=== PATIENT | female | born 1980 | race Caucasian/White ===

== ENCOUNTER 2017-03-31 11:09 | Emergency (ER) | payer MEDICAID, OTHER ==
--- NOTE | 2017-03-31 11:32 | EDM.PDOC ---
ED HPI GENERAL MEDICAL PROBLEM - General Chief Complaint: Abdominal Pain Stated Complaint: ABDOMINAL PAIN Time Seen by Provider: 03/31/17 11:12 - History of Present Illness INITIAL COMMENTS - FREE TEXT/NARRATIVE: History of present illness: [] Patient started having severe periumbilical abdominal pain yesterday with vomiting and diarrhea. She denies any fevers or chills vaginal discharge or difficulty urinating. She has not had this pain in the past. Patient has had 2 months of feeling ill with nausea and has lost her appetite. She states she's lost 27 pounds in the past 2 months. Review of systems: As per history of present illness and below otherwise all systems reviewed and negative. Past medical history: As per history of present illness and as reviewed below otherwise noncontributory. Surgical history: As per history of present illness and as reviewed below otherwise noncontributory. Social history: No reported history of drug or alcohol abuse. Family history: As per history of present illness and as reviewed below otherwise noncontributory. Physical exam: General: Well developed, well nourished in NAD HEENT: Atraumatic, normocephalic, pupils reactive, negative for conjunctival pallor or scleral icterus, mucous membranes moist, throat clear, neck supple, nontender, trachea midline. Lungs: Clear to auscultation, breath sounds equal bilaterally, chest nontender. Heart: S1S2, regular, negative for clicks, rubs, or JVD. Abdomen: Soft, nondistended, diffuse tenderness or rebound or guarding. Negative for masses or hepatosplenomegaly. Negative for costovertebral tenderness. Pelvis: Stable nontender. Genitourinary: Deferred. Rectal: Deferred. Extremities: Atraumatic, negative for cords or calf pain. Neurovascular unremarkable. Neuro: Awake, alert, oriented. Cranial nerves II through XII unremarkable. Cerebellum unremarkable. Motor and sensory unremarkable throughout. Exam nonfocal. Diagnostics: [] CT and labs are normal Therapeutics: [] IV fluids pain meds antibiotics given with improvement Impression: [] Abdominal pain unknown etiology Plan: [] Levsin for abdominal cramping followup PMD return here if symptoms worse Definitive disposition and diagnosis as appropriate pending reevaluation and review of above. Abdominal Pain Score (Numeric/FACES): 7 - Related Data Allergies Allergy/AdvReac Type Severity Reaction Status Date / Time amoxicillin trihydrate Allergy Itching Verified 03/31/17 11:32 [From Augmentin] potassium clavulanate Allergy Itching Verified 03/31/17 11:32 [From Augmentin] Home Meds: Home Meds Hyoscyamine Sulfate [Levsin-Sl] 0.125 mg SL TID PRN #20 tab.subl 03/31/17 [Rx] Past Medical History HEENT History: Reports: Impaired Vision Cardiovascular History: Reports: None Respiratory History: Reports: None Gastrointestinal History: Reports: Cholelithiasis Genitourinary History: Reports: None 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: 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 History: Reports: None Neurological History: Reports: None Psychiatric History: Reports: Anxiety, Depression Endocrine/Metabolic History: Reports: None Hematologic History: Reports: None Immunologic History: Reports: None Oncologic (Cancer) History: Reports: None Dermatologic History: Reports: None - Infectious Disease History Infectious Disease History: Reports: Chicken Pox - Past Surgical History Female Surgical History: Reports: Tubal Ligation Social & Family History - Family History Family Medical History: Noncontributory - Tobacco Use Smoking Status *Q: Current Every Day Smoker Years of Tobacco use: 15 Packs/Tins Daily: 0.5 Used Tobacco, but Quit: No Second Hand Smoke Exposure: No - Recreational Drug Use Recreational Drug Use: No ED ROS GENERAL - Review of Systems Review Of Systems: See Below (See history of present illness) ED EXAM, GI/ABD - Physical Exam Exam: See Below (See history of present illness) Course - Vital Signs Last Recorded V/S: Last Vital Signs Temp 35.9 C 03/31/17 11:22 Pulse 68 03/31/17 11:22 Resp 19 03/31/17 11:22 BP 129/75 03/31/17 11:22 Pulse Ox 99 03/31/17 11:22 - Orders/Labs/Meds Orders: Active Orders 24 hr Category Date Time Status HYDROmorphone [Dilaudid] Med 03/31/17 11:33 Active 0.5 mg IVPUSH Q1H PRN Saline Lock Insert [OM.PC] Stat Oth 03/31/17 11:32 Ordered Medication Orders Hydromorphone HCl (Dilaudid) 0.5 mg IVPUSH Q1H PRN PRN Reason: Pain Last Admin: 03/31/17 11:56 Dose: 0.5 mg Labs: Laboratory Tests 03/31/17 03/31/17 03/31/17 Range/Units 11:32 11:32 11:46 WBC 9.28 (4.0-11.0) K/uL RBC 4.63 (4.30-5.90) M/uL Hgb 14.6 (12.0-16.0) g/dL Hct 42.9 (36.0-46.0) % MCV 92.7 (80.0-98.0) fL MCH 31.5 (27.0-32.0) pg MCHC 34.0 (31.0-37.0) g/dL RDW Std Deviation 45.5 (28.0-62.0) fl RDW Coeff of Jocelyn 13 (11.0-15.0) % Plt Count 175 (150-400) K/uL MPV 12.70 H (7.40-12.00) fL Neut % (Auto) 69.2 (48.0-80.0) % Lymph % (Auto) 25.4 (16.0-40.0) % [place] % (Auto) 4.3 (0.0-15.0) % Eos % (Auto) 0.8 (0.0-7.0) % Baso % (Auto) 0.3 (0.0-1.5) % Neut # (Auto) 6.4 H (1.4-5.7) K/uL Lymph # (Auto) 2.4 (0.6-2.4) K/uL [place] # (Auto) 0.4 (0.0-0.8) K/uL Eos # (Auto) 0.1 (0.0-0.7) K/uL Baso # (Auto) 0.0 (0.0-0.1) K/uL Nucleated RBC % 0.0 /100WBC Nucleated RBCs # 0 K/uL Lactate (0.20-2.00) mmol/L Sodium (136-146) mmol/L Potassium (3.5-5.1) mmol/L Chloride (98-110) mmol/L Carbon Dioxide (21-31) mmol/L BUN (6.0-23.0) mg/dL Creatinine (0.6-1.5) mg/dL Est Cr Clr Drug Dosing mL/min Estimated GFR (MDRD) ml/min Glucose (60-110) mg/dL Calcium (8.8-10.8) mg/dL Total Bilirubin (0.1-1.5) mg/dL AST (5-40) IU/L ALT (8-54) IU/L Alkaline Phosphatase (40-150) Total Protein (6.0-8.0) g/dL Albumin (3.5-5.0) g/dL Globulin (2.0-3.5) g/dL Albumin/Globulin Ratio (1.3-2.8) Lipase (7-80) U/L Urine Color YELLOW Urine Appearance CLEAR Urine pH 6.0 (5.0-8.0) Ur Specific [place] 1.015 (1.001-1.035) Urine Protein NEGATIVE (NEGATIVE) mg/dL Urine Glucose (UA) NEGATIVE (NEGATIVE) mg/dL Urine Ketones NEGATIVE (NEGATIVE) mg/dL Urine Occult Blood NEGATIVE (NEGATIVE) Urine Nitrite NEGATIVE (NEGATIVE) Urine Bilirubin NEGATIVE (NEGATIVE) Urine Urobilinogen 0.2 (<2.0) EU/dL Ur Leukocyte Esterase NEGATIVE (NEGATIVE) Urine RBC NONE SEEN (0-2/HPF) Urine WBC 0-1 (0-5/HPF) Ur Epithelial Cells FEW (NONE-FEW) Urine Bacteria RARE (NEGATIVE) Urine HCG, Qual NEGATIVE (NEGATIVE) 03/31/17 03/31/17 Range/Units 11:46 11:46 WBC (4.0-11.0) K/uL RBC (4.30-5.90) M/uL Hgb (12.0-16.0) g/dL Hct (36.0-46.0) % MCV (80.0-98.0) fL MCH (27.0-32.0) pg MCHC (31.0-37.0) g/dL RDW Std Deviation (28.0-62.0) fl RDW Coeff of Jocelyn (11.0-15.0) % Plt Count (150-400) K/uL MPV (7.40-12.00) fL Neut % (Auto) (48.0-80.0) % Lymph % (Auto) (16.0-40.0) % [place] % (Auto) (0.0-15.0) % Eos % (Auto) (0.0-7.0) % Baso % (Auto) (0.0-1.5) % Neut # (Auto) (1.4-5.7) K/uL Lymph # (Auto) (0.6-2.4) K/uL [place] # (Auto) (0.0-0.8) K/uL Eos # (Auto) (0.0-0.7) K/uL Baso # (Auto) (0.0-0.1) K/uL Nucleated RBC % /100WBC Nucleated RBCs # K/uL Lactate 1.3 (0.20-2.00) mmol/L Sodium 138 (136-146) mmol/L Potassium 4.0 (3.5-5.1) mmol/L Chloride 109 (98-110) mmol/L Carbon Dioxide 20 L (21-31) mmol/L BUN 9 (6.0-23.0) mg/dL Creatinine 0.7 (0.6-1.5) mg/dL Est Cr Clr Drug Dosing 95.94 mL/min Estimated GFR (MDRD) > 60.0 ml/min Glucose 100 (60-110) mg/dL Calcium 8.8 (8.8-10.8) mg/dL Total Bilirubin 0.3 (0.1-1.5) mg/dL AST 16 (5-40) IU/L ALT 16 (8-54) IU/L Alkaline Phosphatase 43 (40-150) Total Protein 7.1 (6.0-8.0) g/dL Albumin 4.4 (3.5-5.0) g/dL Globulin 2.7 (2.0-3.5) g/dL Albumin/Globulin Ratio 1.6 (1.3-2.8) Lipase 29 (7-80) U/L Urine Color Urine Appearance Urine pH (5.0-8.0) Ur Specific [place] (1.001-1.035) Urine Protein (NEGATIVE) mg/dL Urine Glucose (UA) (NEGATIVE) mg/dL Urine Ketones (NEGATIVE) mg/dL Urine Occult Blood (NEGATIVE) Urine Nitrite (NEGATIVE) Urine Bilirubin (NEGATIVE) Urine Urobilinogen (<2.0) EU/dL Ur Leukocyte Esterase (NEGATIVE) Urine RBC (0-2/HPF) Urine WBC (0-5/HPF) Ur Epithelial Cells (NONE-FEW) Urine Bacteria (NEGATIVE) Urine HCG, Qual (NEGATIVE) Meds: Medications Generic Name Dose Route Start Last Admin Trade Name Freq PRN Reason Stop Dose Admin Hydromorphone HCl 0.5 mg 03/31/17 11:33 03/31/17 11:56 Dilaudid IVPUSH 0.5 mg Q1H PRN Administration Pain Discontinued Medications Generic Name Dose Route Start Last Admin Trade Name Freq PRN Reason Stop Dose Admin Sodium Chloride 1,000 mls @ 999 mls/hr 03/31/17 11:33 03/31/17 11:48 Normal Saline IV 03/31/17 12:33 999 mls/hr .Bolus ONE Administration Iopamidol 100 ml 03/31/17 13:29 03/31/17 13:30 Isovue Multipack-370 (76%) IVPUSH 03/31/17 13:30 100 ml ONETIME STA Administration Ondansetron HCl 4 mg 03/31/17 11:33 03/31/17 11:49 Zofran IVPUSH 03/31/17 11:34 4 mg ONETIME ONE Administration Departure - Departure Time of Disposition: 14:41 Disposition: Home, Self-Care 01 Condition: good Clinical Impression: Abdominal pain Qualifiers: Abdominal location: generalized Qualified Code(s): R10.84 - Generalized abdominal pain - Discharge Information Prescriptions: Hyoscyamine Sulfate [Levsin-Sl] 0.125 mg SL TID PRN #20 tab.subl PRN Reason: Abdominal Pain Forms: ED Department Discharge Additional Instructions: The following information is given to patients seen in the emergency department who are being discharged to home. This information is to outline your options for follow-up care. We provide all patients seen in our emergency department with a follow-up referral. The need for follow-up, as well as the timing and circumstances, are variable depending upon the specifics of your emergency department visit. If you don't have a primary care physician on staff, we will provide you with a referral. We always advise you to contact your personal physician following an emergency department visit to inform them of the circumstance of the visit and for follow-up with them and/or the need for any referrals to a consulting specialist. The emergency department will also refer you to a specialist when appropriate. This referral assures that you have the opportunity for follow-up care with a specialist. All of these measure are taken in an effort to provide you with optimal care, which includes your follow-up. Under all circumstances we always encourage you to contact your private physician who remains a resource for coordinating your care. When calling for follow-up care, please make the office aware that this follow-up is from your recent emergency room visit. If for any reason you are refused follow-up, please contact the [facility] Emergency Department at and asked to speak to the emergency department charge nurse. Leslye for abdominal cramps Followup PMD, return here if symptoms change or worsen [facility] [address] [place] [id number] - My Orders Last 24 Hours: My Active Orders 03/31/17 11:32 Saline Lock Insert [OM.PC] Stat 03/31/17 11:33 HYDROmorphone [Dilaudid] 0.5 mg IVPUSH Q1H PRN - Assessment/Plan Last 24 Hours: My Active Orders 03/31/17 11:32 Saline Lock Insert [OM.PC] Stat 03/31/17 11:33 HYDROmorphone [Dilaudid] 0.5 mg IVPUSH Q1H PRN
[2017-03-31] MEDS ORDERED: HYDROmorphone 1 MG/ML Syringe IVPUSH PRN (11:33)
[2017-03-31] MEDS ORDERED: Sodium Chloride 0.9% 1,000 ML IV ONE (11:33)
[2017-03-31] MEDS ORDERED: Ondansetron 4 MG/2 ML SDV IVPUSH ONE (11:33)
[2017-03-31 12:25] LABS: CHLORIDE,CL 109 mmol/L (98-110); SODIUM,NA 138 mmol/L (136-146)
[2017-03-31] MEDS ORDERED: Iopamidol 755 MG/ML 500 ML Multipack Bottle IVPUSH STA (13:29)
--- NOTE | 2017-03-31 14:04 | CT ---
CT of the abdomen and pelvis with contrast. HISTORY: Pain TECHNIQUE: Axial CT images were obtained of the abdomen and pelvis following administration of 100 m L of Isovue-370 in the left wrist without complication. Coronal and sagittal reconstructions obtaine d. FINDINGS: The lung bases are clear, no pleural effusion. Mild focal fatty infiltration near the falciform ligament. The Spleen, adrenal glands, and pancreas appear normal. Cholecystectomy clips. No bulky retroperitoneal lymphadenopathy or abdominal ascites. There is a tiny hiatal hernia. The kidneys enhance and function symmetrically without evidence of obstructive uropathy. The right k idney appears mildly low-lying in the right renal artery originates from the right common iliac gloria ry. 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 The large and small bowel are normal in caliber without evidence of obstruction. No pericolonic infl ammation or stranding. Appendectomy. Uterus and ovaries appear unremarkable. No suspicious osseous abnormalities identified. IMPRESSION: 1. No acute findings within the abdomen or pelvis.
[2017-03-31 16:19] VITALS: BP 102/40
== END 2017-03-31 15:10 | disposition home or self-care (01) ==
LOC: MW.ED 11:09
DX: R10.84 Generalized abdominal pain (principal); F41.9 Anxiety disorder, unspecified; F32.9 Major depressive disorder, single episode, unspecified; Z98.51 Tubal ligation status; F17.210 Nicotine dependence, cigarettes, uncomplicated; Z88.1 Allergy status to other antibiotic agents
CPT/HCPCS: 36415; 74177; 80053; 81001; 81025; 83605; 83690; 85025; 96361; 96374; 96375; 99284; J1170; J2405; J7040; Q9967; 99283

== ENCOUNTER 2017-06-03 10:44 | Day surgery (SDC) | payer BC, MEDICAID ==
[2017-06-02 09:49] LABS: CHLORIDE,CL 107 mmol/L (98-110); SODIUM,NA 142 mmol/L (136-146)
[~2017-06-03 10:44] MED LIST: Fluorescein 5 ML Vial ONE; Lactated Ringers 1,000 ML IV SCH; Sodium Chloride 0.9% 10 ML Syringe FLUSH PRN; Sodium Chloride 0.9% 2.5 ML Syringe FLUSH PRN; ceFAZolin 1 GM in Premix Bag 1 BAG IV ONE
--- NOTE | 2017-06-03 11:57 | PCM.PREANE ---
Preanesthetic Assessment - Anesthesia/Transfusion/Family Hx Anesthesia History: Prior Anesthesia Without Reaction Family History of Anesthesia Reaction: No Transfusion History: No Prior Transfusion(s) - Review of Systems General: No Symptoms Pulmonary: No Symptoms Cardiovascular: No Symptoms Gastrointestinal: No Symptoms Neurological: No Symptoms Other: Reports: None - Physical Assessment NPO Status Date: 06/02/17 NPO Status Time: 22:00 O2 Sat by Pulse Oximetry: 98 Respiratory Rate: 16 Vital Signs: Last Vital Signs Temp 36.6 C 06/03/17 11:10 Pulse 66 06/03/17 11:10 Resp 16 06/03/17 11:10 BP 119/84 06/03/17 11:10 Pulse Ox 98 06/03/17 11:10 Height: 1.65 m Weight: 68.039 kg ASA Class: 2 Mental Status: Alert & Oriented x3 Airway Class: Mallampati = 2 Dentition: Reports: Normal Dentition ROM/Head Extension: Full Lungs: Clear to Auscultation, Normal Respiratory Effort Cardiovascular: Regular Rate, Regular Rhythm - Lab Values: Laboratory Last Values WBC 12.61 K/uL (4.0-11.0) H 06/02/17 09:05 RBC 4.60 M/uL (4.30-5.90) 06/02/17 09:05 Hgb 14.6 g/dL (12.0-16.0) 06/02/17 09:05 Hct 43.6 % (36.0-46.0) 06/02/17 09:05 MCV 94.8 fL (80.0-98.0) 06/02/17 09:05 MCH 31.7 pg (27.0-32.0) 06/02/17 09:05 MCHC 33.5 g/dL (31.0-37.0) 06/02/17 09:05 RDW Std Deviation 46.8 fl (28.0-62.0) 06/02/17 09:05 RDW Coeff of Jocelyn 14 % (11.0-15.0) 06/02/17 09:05 Plt Count 186 K/uL (150-400) 06/02/17 09:05 MPV 12.60 fL (7.40-12.00) H 06/02/17 09:05 Nucleated RBC % 0.0 /100WBC 06/02/17 09:05 Nucleated RBCs # 0 K/uL 06/02/17 09:05 Sodium 142 mmol/L (136-146) 06/02/17 09:05 Potassium 4.0 mmol/L (3.5-5.1) 06/02/17 09:05 Chloride 107 mmol/L (98-110) 06/02/17 09:05 Carbon Dioxide 24 mmol/L (21-31) 06/02/17 09:05 BUN 10 mg/dL (6.0-23.0) 06/02/17 09:05 Creatinine 0.7 mg/dL (0.6-1.5) 06/02/17 09:05 Est Cr Clr Drug Dosing 99.98 mL/min 06/02/17 09:05 Estimated GFR (MDRD) > 60.0 ml/min 06/02/17 09:05 Glucose 87 mg/dL (60-110) 06/02/17 09:05 Calcium 9.4 mg/dL (8.8-10.8) 06/02/17 09:05 HCG, Qual NEGATIVE (NEG) 06/02/17 09:05 Blood Type A POSITIVE 06/02/17 09:05 Antibody Screen NEGATIVE 06/02/17 09:05 - Allergies Allergies/Adverse Reactions: Allergies Allergy/AdvReac Type Severity Reaction Status Date / Time amoxicillin trihydrate Allergy Hives Verified 05/31/17 13:34 [From Augmentin] potassium clavulanate Allergy Hives Verified 05/31/17 13:34 [From Augmentin] - Acknowledgements Anesthesia Type Planned: General Anesthesia Pt an Appropriate Candidate for the Planned Anesthesia: Yes Alternatives and Risks of Anesthesia Discussed w Pt/Guardian: Yes Pt/Guardian Understands and Agrees with Anesthesia Plan: Yes PreAnesthesia Questionnaire HEENT History: Reports: Impaired Vision Other HEENT History: has upper denture and lower partial Cardiovascular History: Reports: None Respiratory History: Reports: None Gastrointestinal History: Reports: GERD Genitourinary History: Reports: None 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 Neurological History: Reports: None Psychiatric History: Reports: Anxiety, Depression Endocrine/Metabolic History: Reports: Other (See Below) Other Endocrine/Metabolic History: has thyroid nodules Hematologic History: Reports: None Immunologic History: Reports: None Oncologic (Cancer) History: Reports: None Dermatologic History: Reports: None - Infectious Disease History Infectious Disease History: Reports: Chicken Pox - Past Surgical History GI Surgical History: Reports: Appendectomy, Cholecystectomy Female Surgical History: Reports: Tubal Ligation Endocrine Surgical History: Reports: None - SUBSTANCE USE Smoking Status *Q: Current Every Day Smoker Tobacco Use Within Last Twelve Months: Cigarettes Second Hand Smoke Exposure: No Recreational Drug Use History: Yes Recreational Drug Type: Reports: Marijuana/Hashish Recreational Drug Last Use: 3 weeks ago - HOME MEDS Home Medications: Home Meds . [No Known Home Meds] 05/31/17 [History] - CURRENT (IN HOUSE) MEDS Current Meds: Current Medications Lactated Ringer's (Ringers, Lactated) 1,000 mls @ 125 mls/hr IV ASDIRECTED NICOLAS Last Admin: 06/03/17 11:12 Dose: 125 mls/hr Sodium Chloride (Saline Flush) 10 ml FLUSH ASDIRECTED PRN PRN Reason: Keep Vein Open Sodium Chloride (Saline Flush) 2.5 ml FLUSH ASDIRECTED PRN PRN Reason: Keep Vein Open Discontinued Medications Fluorescein Sodium (Ak-Fluor) Confirm Administered Dose 5 ml .ROUTE .STK-MED ONE Stop: 06/03/17 07:17 Cefazolin Sodium/Dextrose 1 gm (/ Premix) 50 mls @ 100 mls/hr IV ONETIME ONE Stop: 06/02/17 08:57
[2017-06-03] MEDS ORDERED: Lidocaine 2% 5 ML SDV ONE (12:32)
[2017-06-03] MEDS ORDERED: Propofol 200 MG/20 ML SDV ONE (12:32)
[2017-06-03] MEDS ORDERED: Ondansetron 4 MG/2 ML SDV ONE (12:33)
[2017-06-03] MEDS ORDERED: Ketorolac 30 MG/ML SDV ONE (12:33)
[2017-06-03] MEDS ORDERED: Midazolam 1 MG/ML 2 ML SDV ONE (12:33)
[2017-06-03] MEDS ORDERED: fentaNYL 100 MCG/2 ML SDV ONE (12:33)
[2017-06-03] MEDS ORDERED: ceFAZolin 1 GM Vial ONE (12:40)
[2017-06-03] MEDS ORDERED: Morphine 4 MG/ML Syringe IVPUSH PRN (13:56)
[2017-06-03] MEDS ORDERED: Promethazine 25 MG/ML SDV IM PRN (13:56)
[2017-06-03] MEDS ORDERED: Ketorolac 30 MG/ML SDV IVPUSH PRN (13:56)
[2017-06-03] MEDS ORDERED: Ondansetron 4 MG/2 ML SDV IVPUSH PRN (13:56)
[2017-06-03] MEDS ORDERED: Ketorolac 30 MG/ML SDV IVPUSH ONE (13:56)
[2017-06-03] MEDS ORDERED: Morphine 2 MG/ML Syringe IVPUSH PRN (13:56)
[2017-06-03] MEDS ORDERED: Acetaminophen/oxyCODONE 325-5 MG Tab PO PRN ×2 (13:56)
--- NOTE | 2017-06-03 13:59 | PCM.OPNOTE ---
- General Post-Op/Procedure Note Date of Surgery/Procedure: 06/03/17 Operative Procedure(s): TVT, cysto Pre Op Diagnosis: MARIA R Post-Op Diagnosis: Same Anesthesia Technique: General LMA Primary Surgeon: Yan Bell Premium Auditor: Tana Wilde EBL in mLs: 50 Complications: None Condition: Good
--- NOTE | 2017-06-03 14:00 | PCM.DCSUM1 ---
Discharge Summary - Discharge Data Discharge Date: 06/03/17 Discharge Disposition: Home, Self-Care 01 Condition: Good - Patient Summary/Data Operative Procedure(s) Performed: TVT, cysto - Patient Instructions Diet: Usual Diet as Tolerated Driving: Do Not Drive Showering/Bathing: May Shower Notify Provider of: Fever, Increased Pain, Nausea and/or Vomiting - Discharge Plan Home Medications: Home Meds . [No Known Home Meds] 05/31/17 [History] - General Info Date of Service: 06/03/17 Functional Status: Reports: Pain Controlled - Review of Systems General: Reports: No Symptoms HEENT: Reports: No Symptoms Pulmonary: Reports: No Symptoms Cardiovascular: Reports: No Symptoms Gastrointestinal: Reports: No Symptoms Genitourinary: Reports: No Symptoms 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: Reports: No Symptoms Skin: Reports: No Symptoms Neurological: Reports: No Symptoms Psychiatric: Reports: No Symptoms - Patient Data Vitals - Most Recent: Last Vital Signs Temp 36.6 C 06/03/17 11:10 Pulse 66 06/03/17 11:10 Resp 16 06/03/17 11:57 BP 119/84 06/03/17 11:10 Pulse Ox 98 06/03/17 11:57 Weight - Most Recent: 68.039 kg Med Orders - Current: Current Medications Fentanyl (Sublimaze) 50 mcg IVPUSH Q5M PRN PRN Reason: Pain (severe 7-10) Stop: 06/04/17 13:47 Lactated Ringer's (Ringers, Lactated) 1,000 mls @ 125 mls/hr IV ASDIRECTED NICOLAS Last Admin: 06/03/17 11:12 Dose: 125 mls/hr Ketorolac Tromethamine (Toradol) 30 mg IVPUSH ONETIME ONE Stop: 06/03/17 13:57 Ketorolac Tromethamine (Toradol) 30 mg IVPUSH Q6H PRN PRN Reason: Pain (severe 7-10) Stop: 06/08/17 13:56 Morphine Sulfate (Morphine) 2 mg IVPUSH Q2H PRN PRN Reason: Pain (severe 7-10) Morphine Sulfate (Morphine) 4 mg IVPUSH Q2H PRN PRN Reason: Pain (severe 7-10) Ondansetron HCl (Zofran) 4 mg IVPUSH Q6H PRN PRN Reason: Nausea/Vomiting Oxycodone/Acetaminophen (Percocet 325-5 Mg) 1 tab PO Q4H PRN PRN Reason: Pain (moderate 4-6) Oxycodone/Acetaminophen (Percocet 325-5 Mg) 2 tab PO Q4H PRN PRN Reason: Pain (moderate 4-6) Promethazine HCl (Phenergan) 25 mg IM Q6H PRN PRN Reason: Nausea/Vomiting Sodium Chloride (Saline Flush) 10 ml FLUSH ASDIRECTED PRN PRN Reason: Keep Vein Open Sodium Chloride (Saline Flush) 2.5 ml FLUSH ASDIRECTED PRN PRN Reason: Keep Vein Open Discontinued Medications Cefazolin Sodium (Ancef) Confirm Administered Dose 1 gm .ROUTE .STK-MED ONE Stop: 06/03/17 12:41 Fentanyl (Sublimaze) Confirm Administered Dose 200 mcg .ROUTE .STK-MED ONE Stop: 06/03/17 12:34 Fluorescein Sodium (Ak-Fluor) Confirm Administered Dose 5 ml .ROUTE .STK-MED ONE Stop: 06/03/17 07:17 Cefazolin Sodium/Dextrose 1 gm (/ Premix) 50 mls @ 100 mls/hr IV ONETIME ONE Stop: 06/02/17 08:57 Ketorolac Tromethamine (Toradol) Confirm Administered Dose 30 mg .ROUTE .STK- MED ONE Stop: 06/03/17 12:34 Lidocaine (Xylocaine-Mpf 2%) Confirm Administered Dose 10 ml .ROUTE .STK-MED ONE Stop: 06/03/17 12:33 Midazolam HCl (Versed 1 Mg/Ml) Confirm Administered Dose 2 mg .ROUTE .STK-MED ONE Stop: 06/03/17 12:34 Ondansetron HCl (Zofran) Confirm Administered Dose 4 mg .ROUTE .STK-MED ONE Stop: 06/03/17 12:34 Propofol (Diprivan 20 Ml) Confirm Administered Dose 400 mg .ROUTE .STK-MED ONE Stop: 06/03/17 12:33 - Exam General: Reports: Alert, Oriented HEENT: Reports: Pupils Equal, Pupils Reactive, EOMI, Mucous Membr. Moist/[place] Neck: Reports: Supple Lungs: Reports: Clear to Auscultation, Normal Respiratory Effort Cardiovascular: Reports: Regular Rate, Regular Rhythm GI/Abdominal Exam: Normal Bowel Sounds, Soft, Non-Tender, No Organomegaly, No Distention, No Abnormal Bruit, No Mass, Pelvis Stable (Female) Exam: Normal External Exam, Normal Speculum Exam, Normal Bimanual Exam Rectal (Female) Exam: Normal Exam, Normal Rectal Tone Back Exam: Reports: Normal Inspection, Full Range of Motion Extremities: Normal Inspection, Normal Range of Motion, Non-Tender, No Pedal Edema, Normal Capillary Refill Skin: Reports: Warm, Dry, Intact Wound/Incisions: Reports: Healing Well Neurological: Reports: No New Focal Deficit Psy/Mental Status: Reports: Alert, Normal Affect, Normal Mood *Q Meaningful Use (DIS) - VTE *Q VTE Criteria *Q: - Stroke *Q Stroke Criteria *Q: - AMI *Q AMI Criteria *Q:
[2017-06-03] MEDS: fentaNYL 100 MCG/2 ML SDV IVPUSH PRN ×2 (14:21→14:28)
--- NOTE | 2017-06-03 14:38 | PCM.POSTAN ---
POST ANESTHESIA ASSESSMENT - MENTAL STATUS Mental Status: Alert, Oriented - RESPIRATORY Respiratory Status: Respiratory Rate WNL, Airway Patent, O2 Saturation Stable - CARDIOVASCULAR CV Status: Pulse Rate WNL, Blood Pressure Stable - GASTROINTESTINAL GI Status: No Symptoms - POST OP HYDRATION Hydration Status: Adequate & Stable
--- NOTE | 2017-06-03 14:38 | PCM48HPAN ---
Post Anesthesia Note - EVALUATION WITHIN 48HRS OF ANESTHETIC Vital Signs in Normal Range: Yes Patient Participated in Evaluation: Yes Respiratory Function Stable: Yes Airway Patent: Yes Cardiovascular Function Stable: Yes Hydration Status Stable: Yes Pain Control Satisfactory: Yes Nausea and Vomiting Control Satisfactory: Yes Mental Status Recovered: Yes
[2017-06-03 15:12] VITALS: BP 95/65
--- NOTE | 2017-06-03 20:33 | OR ---
SURGEON: Yan Bell MD DATE OF PROCEDURE: PREOPERATIVE DIAGNOSIS: Stress urinary incontinence. POSTOPERATIVE DIAGNOSIS: Stress urinary incontinence. OPERATION PERFORMED: Tension-free vaginal tape and cystoscopy. HUMAN FACTORS ADVISOR LEAD: MITZI Velasquez. ANESTHESIA: General endotracheal intubation LMA, Dr. Fred Cooper, Dr. Tiwari. ESTIMATED BLOOD LOSS: Less than 50 mL. COMPLICATIONS: None. FINDINGS: Stress urinary incontinence. INDICATION: The patient is 36. She has a genuine stress urinary incontinence. She had urodynamic study confirmed the genuine stress urinary incontinence. The patient admitted for the TVT. PROCEDURE IN DETAIL: The patient was brought to the OR, properly identified, and after adequate level of general anesthesia, the patient was placed in lithotomy position. Prepped and draped in sterile fashion as usual and then 1 inch beneath the urethra is infiltrated with copious amount of normal saline and opened at the midline with electrocautery and then the vaginal wall was dissected in a tunneling fashion in both way until we could feel the pubic rami on both sides. Solyx TVT is used and placed in place with due amount of tension to elevate the urethrovesical angle. Once this was done, then the vaginal cuff was closed in the midline with 2-0 Vicryl continuous interlocking for hemostasis. Cystoscopy after that was performed. The bladder was intact. Urine was flowing from both ureters. After that, the procedure was ended. Instrument and sponge count were correct. The patient tolerated the procedure well, went to recovery room in stable general condition. JACKIE / NIKI /[id number]
== END 2017-06-03 15:20 | disposition home or self-care (01) ==
LOC: MW.SDS 10:44
PROVIDERS: ATTEND Obstetrics & Gynecology
PROC: 0TSD0ZZ Reposition Urethra, Open Approach (ICD-10-PCS; principal; 2017-06-03)
DX: N39.3 Stress incontinence (female) (male) (principal); F17.210 Nicotine dependence, cigarettes, uncomplicated; Z88.0 Allergy status to penicillin; Z98.51 Tubal ligation status; Z90.49 Acquired absence of other specified parts of digestive tract
CPT/HCPCS: 36415; 57288; 80048; 84703; 85027; 86850; 86900; 86901; C1781; J0690; J1885; J2250; J2405; J3010; J7120; 00860; J2704

== ENCOUNTER 2018-06-16 15:48 | Emergency (ER) | payer SELFPAY ==
[2018-06-16] MEDS ORDERED: Sodium Chloride 0.9% 2.5 ML Syringe FLUSH PRN (16:05)
[2018-06-16] MEDS ORDERED: Sodium Chloride 0.9% 10 ML Syringe FLUSH PRN (16:05)
[2018-06-16] MEDS ORDERED: Ketorolac 30 MG/ML SDV IVPUSH ONE (16:06)
[2018-06-16] MEDS ORDERED: Morphine 2 MG/ML Syringe IVPUSH ONE (16:06)
--- NOTE | 2018-06-16 16:19 | EDM.PDOC ---
ED HPI GENERAL MEDICAL PROBLEM - General Chief Complaint: Abdominal Pain Stated Complaint: PT IS IN PAIN Time Seen by Provider: 06/16/18 16:12 Source of Information: Reports: Patient History Limitations: Reports: No Limitations - History of Present Illness INITIAL COMMENTS - FREE TEXT/NARRATIVE: HISTORY AND PHYSICAL: History of present illness: Patient is a 37-year-old female here with complaint of lower abdominal pain. She states that yesterday she started having right lower abdominal pain and felt like she was about to get a really bad period. She states just ended her period 6 days ago. She states about 5 hours ago she developed a really sharp RLQ pain that has been constant. She denies any nausea, vomiting, diarrhea, fevers, chills, vaginal discharge. She has history of tubal ligation and appendectomy. Review of systems: As per history of present illness and below otherwise all systems reviewed and negative. Past medical history: As per history of present illness and as reviewed below otherwise noncontributory. Surgical history: As per history of present illness and as reviewed below otherwise noncontributory. Social history: No reported history of drug or alcohol abuse. Family history: As per history of present illness and as reviewed below otherwise noncontributory. Physical exam: General: Patient sitting up in bed with hands over abdomen but in no acute distress HEENT: Atraumatic, normocephalic, pupils reactive, negative for conjunctival pallor or scleral icterus, mucous membranes moist, throat clear, neck supple, nontender, trachea midline. Lungs: Clear to auscultation, breath sounds equal bilaterally, chest nontender. Heart: S1S2, regular, negative for clicks, rubs, or JVD. Abdomen: Moderate tenderness to palpation of the RLQ. Soft, nondistended, Negative for masses or hepatosplenomegaly. Negative for costovertebral tenderness. Pelvis: Stable nontender. Genitourinary: Deferred. Rectal: Deferred. Extremities: Atraumatic, negative for cords or calf pain. Neurovascular unremarkable. Neuro: Awake, alert, oriented. Cranial nerves II through XII unremarkable. Cerebellum unremarkable. Motor and sensory unremarkable throughout. Exam nonfocal. Notes: Patient has a minimally elevated WBC, patient reports that she has a follow up with provider tomorrow regarding her pelvic pain. Advised that she has WBC count rechecked tomorrow. Diagnostics: CBC, CMP, lipase, troponin Pelvic US Abdominal CT negative Therapeutics: Toradol 30mg IV Impression: Pelvic cramping Plan: 1. Take diclofenac as needed as discussed 2. Follow up with primary care provider tomorrow 3. Return to ED as needed as discussed Definitive disposition and diagnosis as appropriate pending reevaluation and review of above. Right Lower Abdomen Pain Score (Numeric/FACES): 8 - Related Data Allergies Allergy/AdvReac Type Severity Reaction Status Date / Time amoxicillin trihydrate Allergy Hives Verified 05/31/17 13:34 [From Augmentin] potassium clavulanate Allergy Hives Verified 05/31/17 13:34 [From Augmentin] Home Meds: Home Meds Diclofenac Sodium [Voltaren] 75 mg PO BIDMEALS #20 tab.cr 06/16/18 [Rx] Past Medical History HEENT History: Reports: Impaired Vision Other HEENT History: has upper denture and lower partial Cardiovascular History: Reports: None Respiratory History: Reports: None Gastrointestinal History: Reports: GERD Genitourinary History: Reports: None 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: 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 History: Reports: None Neurological History: Reports: None Psychiatric History: Reports: Anxiety, Depression Endocrine/Metabolic History: Reports: Other (See Below) Other Endocrine/Metabolic History: has thyroid nodules Hematologic History: Reports: None Immunologic History: Reports: None Oncologic (Cancer) History: Reports: None Dermatologic History: Reports: None - Infectious Disease History Infectious Disease History: Reports: Chicken Pox - Past Surgical History GI Surgical History: Reports: Appendectomy, Cholecystectomy Female Surgical History: Reports: Tubal Ligation Endocrine Surgical History: Reports: None Social & Family History - Family History Family Medical History: Noncontributory - Tobacco Use Smoking Status *Q: Current Every Day Smoker Years of Tobacco use: 20 Packs/Tins Daily: 0.5 - Caffeine Use Caffeine Use: Reports: Coffee Caffeine Use Comment: 1-2cups/day - Recreational Drug Use Recreational Drug Use: No ED ROS GENERAL - Review of Systems Review Of Systems: ROS reveals no pertinent complaints other than HPI. ED EXAM, GI/ABD - Physical Exam Exam: See Below (see dictation) Course - Vital Signs Last Recorded V/S: Last Vital Signs Temp 36.4 C 06/16/18 16:01 Pulse 103 H 06/16/18 16:01 Resp 22 H 06/16/18 16:01 BP 136/89 06/16/18 16:01 Pulse Ox 99 06/16/18 16:01 - Orders/Labs/Meds Orders: Active Orders 24 hr Category Date Time Status Abdomen Pelvis w Cont [CT] Stat Exams 06/16/18 17:17 Taken Pelvis Non OB Ltd [US] Stat Exams 06/16/18 16:14 Taken CULTURE BLOOD [BC] Stat Lab 06/16/18 17:48 Received CULTURE BLOOD [BC] Stat Lab 06/16/18 18:00 Received CULTURE URINE [RM] Stat Lab 06/16/18 16:40 Received HCG QUALITATIVE,URINE [URCHEM] Stat Lab 06/16/18 16:40 Ordered UA W/MICROSCOPIC [URIN] Stat Lab 06/16/18 16:40 Ordered Sodium Chloride 0.9% [Saline Flush] Med 06/16/18 16:05 Active 10 ml FLUSH ASDIRECTED PRN Sodium Chloride 0.9% [Saline Flush] Med 06/16/18 16:05 Active 2.5 ml FLUSH ASDIRECTED PRN Blood Culture x2 Reflex Set [OM.PC] Stat Oth 06/16/18 17:46 Ordered Saline Lock Insert [OM.PC] Stat Oth 06/16/18 16:05 Ordered Medication Orders Sodium Chloride (Saline Flush) 10 ml FLUSH ASDIRECTED PRN PRN Reason: Keep Vein Open Sodium Chloride (Saline Flush) 2.5 ml FLUSH ASDIRECTED PRN PRN Reason: Keep Vein Open Labs: Laboratory Tests 06/16/18 06/16/18 06/16/18 Range/Units 16:40 16:40 17:00 WBC 14.57 H (4.0-11.0) K/uL RBC 4.97 (4.30-5.90) M/uL Hgb 16.5 H (12.0-16.0) g/dL Hct 46.6 H (36.0-46.0) % MCV 93.8 (80.0-98.0) fL MCH 33.2 H (27.0-32.0) pg MCHC 35.4 (31.0-37.0) g/dL RDW Std Deviation 49.7 (28.0-62.0) fl RDW Coeff of Jocelyn 15 (11.0-15.0) % Plt Count 193 (150-400) K/uL MPV 12.80 H (7.40-12.00) fL Neut % (Auto) 73.1 (48.0-80.0) % Lymph % (Auto) 21.3 (16.0-40.0) % [place] % (Auto) 4.9 (0.0-15.0) % Eos % (Auto) 0.4 (0.0-7.0) % Baso % (Auto) 0.3 (0.0-1.5) % Neut # (Auto) 10.7 H (1.4-5.7) K/uL Lymph # (Auto) 3.1 H (0.6-2.4) K/uL [place] # (Auto) 0.7 (0.0-0.8) K/uL Eos # (Auto) 0.1 (0.0-0.7) K/uL Baso # (Auto) 0.0 (0.0-0.1) K/uL Nucleated RBC % 0.0 /100WBC Nucleated RBCs # 0 K/uL INR Sodium (136-145) mmol/L Potassium (3.5-5.1) mmol/L Chloride (98-107) mmol/L Carbon Dioxide (21.0-32.0) mmol/L BUN (7.0-18.0) mg/dL Creatinine (0.6-1.0) mg/dL Est Cr Clr Drug Dosing mL/min Estimated GFR (MDRD) ml/min Glucose (74-106) mg/dL Calcium (8.5-10.1) mg/dL Total Bilirubin (0.2-1.0) mg/dL AST (15-37) IU/L ALT (14-63) IU/L Alkaline Phosphatase (46-116) U/L Total Protein (6.4-8.2) g/dL Albumin (3.4-5.0) g/dL Globulin (2.0-3.5) g/dL Albumin/Globulin Ratio (1.3-2.8) Lipase (73-393) U/L Urine Color YELLOW Urine Appearance CLEAR Urine pH 6.5 (5.0-8.0) Ur Specific [place] 1.025 (1.001-1.035) Urine Protein NEGATIVE (NEGATIVE) mg/dL Urine Glucose (UA) NEGATIVE (NEGATIVE) mg/dL Urine Ketones 40 H (NEGATIVE) mg/dL Urine Occult Blood NEGATIVE (NEGATIVE) Urine Nitrite NEGATIVE (NEGATIVE) Urine Bilirubin SMALL H (NEGATIVE) Urine Ictotest NEGATIVE Urine Urobilinogen 0.2 (<2.0) EU/dL Ur Leukocyte Esterase NEGATIVE (NEGATIVE) Urine RBC 0-1 (0-2/HPF) Urine WBC 0-1 (0-5/HPF) Ur Epithelial Cells MODERATE (NONE-FEW) Urine Bacteria RARE (NEGATIVE) Urine HCG, Qual NEGATIVE (NEGATIVE) 06/16/18 06/16/18 Range/Units 17:00 17:00 WBC (4.0-11.0) K/uL RBC (4.30-5.90) M/uL Hgb (12.0-16.0) g/dL Hct (36.0-46.0) % MCV (80.0-98.0) fL MCH (27.0-32.0) pg MCHC (31.0-37.0) g/dL RDW Std Deviation (28.0-62.0) fl RDW Coeff of Jocelyn (11.0-15.0) % Plt Count (150-400) K/uL MPV (7.40-12.00) fL Neut % (Auto) (48.0-80.0) % Lymph % (Auto) (16.0-40.0) % [place] % (Auto) (0.0-15.0) % Eos % (Auto) (0.0-7.0) % Baso % (Auto) (0.0-1.5) % Neut # (Auto) (1.4-5.7) K/uL Lymph # (Auto) (0.6-2.4) K/uL [place] # (Auto) (0.0-0.8) K/uL Eos # (Auto) (0.0-0.7) K/uL Baso # (Auto) (0.0-0.1) K/uL Nucleated RBC % /100WBC Nucleated RBCs # K/uL INR 0.95 Sodium 138 (136-145) mmol/L Potassium 3.7 (3.5-5.1) mmol/L Chloride 103 (98-107) mmol/L Carbon Dioxide 25.5 (21.0-32.0) mmol/L BUN 6 L (7.0-18.0) mg/dL Creatinine 0.7 (0.6-1.0) mg/dL Est Cr Clr Drug Dosing 91.02 mL/min Estimated GFR (MDRD) > 60.0 ml/min Glucose 99 (74-106) mg/dL Calcium 9.4 (8.5-10.1) mg/dL Total Bilirubin 0.5 (0.2-1.0) mg/dL AST 20 (15-37) IU/L ALT 28 (14-63) IU/L Alkaline Phosphatase 77 (46-116) U/L Total Protein 7.2 (6.4-8.2) g/dL Albumin 3.7 (3.4-5.0) g/dL Globulin 3.5 (2.0-3.5) g/dL Albumin/Globulin Ratio 1.1 L (1.3-2.8) Lipase 161 (73-393) U/L Urine Color Urine Appearance Urine pH (5.0-8.0) Ur Specific [place] (1.001-1.035) Urine Protein (NEGATIVE) mg/dL Urine Glucose (UA) (NEGATIVE) mg/dL Urine Ketones (NEGATIVE) mg/dL Urine Occult Blood (NEGATIVE) Urine Nitrite (NEGATIVE) Urine Bilirubin (NEGATIVE) Urine Ictotest Urine Urobilinogen (<2.0) EU/dL Ur Leukocyte Esterase (NEGATIVE) Urine RBC (0-2/HPF) Urine WBC (0-5/HPF) Ur Epithelial Cells (NONE-FEW) Urine Bacteria (NEGATIVE) Urine HCG, Qual (NEGATIVE) Meds: Medications Generic Name Dose Route Start Last Admin Trade Name Frephillip PRN Reason Stop Dose Admin Sodium Chloride 10 ml 06/16/18 16:05 Saline Flush FLUSH ASDIRECTED PRN Keep Vein Open Sodium Chloride 2.5 ml 06/16/18 16:05 Saline Flush FLUSH ASDIRECTED PRN Keep Vein Open Discontinued Medications Generic Name Dose Route Start Last Admin Trade Name Jasmine PRN Reason Stop Dose Admin Iopamidol 100 ml 06/16/18 18:48 06/16/18 18:49 Isovue Multipack-370 (76%) IVPUSH 06/16/18 18:49 100 ml ONETIME STA Administration Ketorolac Tromethamine 30 mg 06/16/18 16:06 06/16/18 16:23 Toradol IVPUSH 06/16/18 16:07 30 mg ONETIME ONE Administration Morphine Sulfate 2 mg 06/16/18 16:06 06/16/18 16:56 Morphine IVPUSH 06/16/18 16:07 Not Given ONETIME ONE Departure - Departure Time of Disposition: 18:51 Disposition: Home, Self-Care 01 Condition: Good Clinical Impression: Pelvic pain - Discharge Information Prescriptions: Diclofenac Sodium [Voltaren] 75 mg PO BIDMEALS #20 tab.cr Referrals: PCP,None [Primary Care Provider] - Forms: ED Department Discharge - My Orders Last 24 Hours: My Active Orders 06/16/18 16:05 Sodium Chloride 0.9% [Saline Flush] 10 ml FLUSH ASDIRECTED PRN Sodium Chloride 0.9% [Saline Flush] 2.5 ml FLUSH ASDIRECTED PRN Saline Lock Insert [OM.PC] Stat 06/16/18 16:14 Pelvis Non OB Ltd [US] Stat 06/16/18 16:40 CULTURE URINE [RM] Stat HCG QUALITATIVE,URINE [URCHEM] Stat UA W/MICROSCOPIC [URIN] Stat 06/16/18 17:17 Abdomen Pelvis w Cont [CT] Stat 06/16/18 17:46 Blood Culture x2 Reflex Set [OM.PC] Stat 06/16/18 17:48 CULTURE BLOOD [BC] Stat 06/16/18 18:00 CULTURE BLOOD [BC] Stat - Assessment/Plan Last 24 Hours: My Active Orders 06/16/18 16:05 Sodium Chloride 0.9% [Saline Flush] 10 ml FLUSH ASDIRECTED PRN Sodium Chloride 0.9% [Saline Flush] 2.5 ml FLUSH ASDIRECTED PRN Saline Lock Insert [OM.PC] Stat 06/16/18 16:14 Pelvis Non OB Ltd [US] Stat 06/16/18 16:40 CULTURE URINE [RM] Stat HCG QUALITATIVE,URINE [URCHEM] Stat UA W/MICROSCOPIC [URIN] Stat 06/16/18 17:17 Abdomen Pelvis w Cont [CT] Stat 06/16/18 17:46 Blood Culture x2 Reflex Set [OM.PC] Stat 06/16/18 17:48 CULTURE BLOOD [BC] Stat 06/16/18 18:00 CULTURE BLOOD [BC] Stat
[2018-06-16 17:40] LABS: CHLORIDE,CL 103 mmol/L (98-107); SODIUM,NA 138 mmol/L (136-145)
[2018-06-16] MEDS ORDERED: Iopamidol 755 MG/ML 500 ML Multipack Bottle IVPUSH STA (18:48)
[2018-06-16 19:28] VITALS: BP 150/74
--- NOTE | 2018-06-17 20:21 | US ---
EXAM DATE: 06/16/18 PATIENT'S AGE: 37 Patient: LOY CEDENO Facility: [place], [place] Site . Site : 1980 Study: US Pelvis [id number] 4:48:26 PM Ordering Physician: Doctor Johnson Final Report: INDICATION: Right lower quadrant pain, history of appendectomy. TECHNIQUE: Transit vaginal evaluation only paragraphs. FINDINGS: The uterus is anteverted and normal in contour. Uterus measures 9.6 x 4.7 x 5.5 cm. Endometrium measures 1.4 cm. There are no abnormal uterine or endometrial masses. Both ovaries are normal with peripheral follicles. There are no abnormal paraovarian or ovarian masses. Doppler flow to both ovaries is normal. The right ovary measures 2.5 x 3.1 x 3.1 cm. The left ovary measures 2.4 x 2.2 x 2.1 cm. There is no abnormal cul-de-sac fluid or pelvic ascites. IMPRESSION: Normal transvaginal pelvic ultrasound. Dictated by Michelle Wilson MD @ Jun 16 2018 5:07PM (Electronic Signature) Report Signed by Proxy. JANI
--- NOTE | 2018-06-17 20:31 | CT ---
EXAM DATE: 06/16/18 PATIENT'S AGE: 37 Patient: LOY CEDENO Facility: [place], [place] Site . Site : 1980 Study: CT Abdomen/Pelvis [id number] 6:22:48 PM Ordering Physician: Doctor Johnson Final Report: INDICATION: Right lower quadrant pain. TECHNIQUE: Contiguous axial images were obtained from the domes of the diaphragm through the pubic symphysis following the intravenous administration of 100 mL of Isovue -370. 3D rendering, including image post processing was performed on an independent workstation. COMPARISON: Pelvic ultrasound 06/16/2018. FINDINGS: The visualized lower lungs are unremarkable. Two very small, too small to characterize low attenuation lesions are noted in the right lower and left lobe of the liver which could reflect small hepatic cysts. There is no intrahepatic or extrahepatic biliary dilatation. Patient is status post cholecystectomy. The spleen, pancreas, adrenal glands and left kidney are unremarkable. 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 There is no hydronephrosis nor hydroureter. Urinary bladder, uterus and adnexa are normal. Surgical chain sutures are noted in the cecum reflecting prior appendectomy. Bowel and mesentery are normal. There is no abdominal or pelvic ascites. Atherosclerotic changes are noted in the proximal aorta without aneurysmal dilatation. IMPRESSION: 1. Changes of appendectomy and cholecystectomy. 2. Probable hepatic cyst. 3. Nothing acute in abdomen/pelvis on CT. Please note that all CT scans at this facility use dose modulation, iterative reconstruction, and/or weight-based dosing when appropriate to reduce radiation dose to as low as reasonably achievable. Dictated by Michelle Wilson MD @ Jun 16 2018 6:44PM (Electronic Signature) Report Signed by Proxy. [facility]ITALSt[facility]
== END 2018-06-16 19:10 | disposition home or self-care (01) ==
LOC: MW.ED 15:48
DX: R10.2 Pelvic and perineal pain (principal); R25.2 Cramp and spasm; F17.210 Nicotine dependence, cigarettes, uncomplicated; Z88.1 Allergy status to other antibiotic agents
CPT/HCPCS: 36415; 74177; 76857; 80053; 81001; 81025; 83690; 85025; 85610; 87040; 87086; 96374; 99284; J1885; Q9967; 99283

== ENCOUNTER 2019-03-04 13:08 | Emergency (ER) | payer OTHER ==
[2019-03-04 13:25] VITALS: BP 144/88
[2019-03-04] MEDS ORDERED: Diphtheria,Pertussis(Acell),Tetanus Vaccine 0.5 ML Syringe IM ONE (13:27)
[2019-03-04] MEDS ORDERED: Bacitracin Oint 1 GM U/D Packet TOP ONE (13:28)
--- NOTE | 2019-03-04 13:32 | EDM.PDOC ---
ED HPI GENERAL MEDICAL PROBLEM - General Chief Complaint: Laceration Stated Complaint: CUT LEFT INDEX FINGER Time Seen by Provider: 03/04/19 13:11 Source of Information: Reports: Patient History Limitations: Reports: No Limitations - History of Present Illness INITIAL COMMENTS - FREE TEXT/NARRATIVE: HISTORY AND PHYSICAL: History of present illness: Patient is a 38-year-old female who presents to the emergency room today with complaints of a laceration to her left index finger. 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 She has a 2 cm linear laceration to the dorsal aspect of the left index finger below the nailbed. No current bleeding noted. She is unsure of her last tetanus update. Review of systems: As per history of present illness and below otherwise all systems reviewed and negative. Past medical history: As per history of present illness and as reviewed below otherwise noncontributory. Surgical history: As per history of present illness and as reviewed below otherwise noncontributory. Social history: See social history for further information Family history: As per history of present illness and as reviewed below otherwise noncontributory. Physical exam: General: Well-developed and well-nourished 38-year-old female. Alert and oriented. Nontoxic appearing and in no acute distress. HEENT: Atraumatic, normocephalic, pupils equal and reactive bilaterally, negative for conjunctival pallor or scleral icterus, mucous membranes moist, trachea midline. No drooling or trismus noted. No meningeal signs. No hot potato voice noted. Lungs: Clear to auscultation, breath sounds equal bilaterally, chest nontender. Heart: S1S2, regular rate and rhythm without overt murmur Abdomen: Soft, nondistended, nontender. Skin:2 cm linear laceration to the dorsal aspect of the left index finger below the nailbed. Otherwise skin is intact, warm, dry. No lesions or rashes noted. Extremities: See skin for details, appears to have no tendon involvement. Does not involve the nailbed. She moves all extremities per self without difficulty or deficits, negative for cords or calf pain. Neurovascular unremarkable. Neuro: Awake, alert, oriented. Cranial nerves II through XII unremarkable. Cerebellum unremarkable. Motor and sensory unremarkable throughout. Exam nonfocal. Notes: 1% lidocaine was used to anesthetize the area. Chlorhexidine and wound wash were used to thoroughly cleanse the laceration. Usual and customary procedures were followed for suture care. 4-0 nylon, #4 interrupted sutures were placed. Patient tolerated well. Nonstick bacitracin dressing applied with education. Supportive care measures were reviewed and discussed. Voices understanding and is agreeable to plan of care. Denies any further questions or concerns at this time. Diagnostics: None Therapeutics: Wound care, 1% lidocaine, bacitracin nonstick dressing Prescription: None Impression: Laceration Plan: 1. Keep the area clean and dry. Continue to monitor for signs of infection. Sutures to be removed in 7-10 days. 2. Tylenol and/or ibuprofen as needed for pain management. 3. Please follow-up with your primary care provider in the next 1-2 days. Return to the ED as needed and as discussed. Definitive disposition and diagnosis as appropriate pending reevaluation and review of above. Left Finger-Index Pain Score (Numeric/FACES): 5 - Related Data Allergies Allergy/AdvReac Type Severity Reaction Status Date / Time amoxicillin trihydrate Allergy Hives Verified 03/04/19 13:25 [From Augmentin] potassium clavulanate Allergy Hives Verified 03/04/19 13:25 [From Augmentin] Home Meds: Home Meds . 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: 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 History: Reports: None Neurological History: Reports: None Psychiatric History: Reports: Anxiety, Depression Endocrine/Metabolic History: Reports: Other (See Below) Other Endocrine/Metabolic History: has thyroid nodules Hematologic History: Reports: None Immunologic History: Reports: None Oncologic (Cancer) History: Reports: None Dermatologic History: Reports: None - Infectious Disease History Infectious Disease History: Reports: Chicken Pox - Past Surgical History GI Surgical History: Reports: Appendectomy, Cholecystectomy Female Surgical History: Reports: Tubal Ligation Endocrine Surgical History: Reports: None Social & Family History - Family History Family Medical History: Noncontributory - Caffeine Use Caffeine Use: Reports: Coffee Caffeine Use Comment: 1-2cups/day ED [facility] GENERAL - Review of Systems Review Of Systems: ROS reveals no pertinent complaints other than HPI. ED EXAM, SKIN/RASH Exam: See Below ED SKIN PROCEDURES - Laceration/Wound Repair Left index finger Lac/Wound length In cm: 2 Appearance: Subcutaneous, Linear Anesthetic Type: Local Local Anesthesia - Lidocaine (Xylocaine): 1% Plain Local Anesthetic Volume: 3cc Skin Prep: Chlorhexidine (Hibiciens), Saline Saline Irrigation (cc's): 25 Exploration/Debridement/Repair: Wound Explored, No Foreign Material Found Closed with: Sutures Suture Size: 4-0 # of Sutures: 4 Suture Type: Nylon, Interrupted, Simple Drain Placement: No Sterile Dressing Applied: Provider Tetanus Status Addressed: Yes Complications: No Course - Vital Signs Last Recorded V/S: Last Vital Signs Temp 97.6 F 03/04/19 13:22 Pulse 73 03/04/19 13:22 Resp 18 03/04/19 13:22 BP 144/88 H 03/04/19 13:22 Pulse Ox 99 03/04/19 13:22 - Orders/Labs/Meds Orders: Active Orders 24 hr Category Date Time Status Vaccines to be Administered [RC] PER UNIT ROUTINE Care 03/04/19 13:28 Active Meds: Medications Discontinued Medications Generic Name Dose Route Start Last Admin Trade Name Jasmine PRN Reason Stop Dose Admin Bacitracin 1 dose 03/04/19 13:28 03/04/19 13:40 Bacitracin Oint 1 Gm TOP 03/04/19 13:29 1 dose ONETIME ONE Administration Diphtheria/Tetanus/Acell Pertussis 0.5 ml 03/04/19 13:27 03/04/19 13:39 Adacel IM 03/04/19 13:28 0.5 ml .ONCE ONE Administration Lidocaine HCl 5 ml 03/04/19 13:28 03/04/19 13:41 Xylocaine-Mpf 1% INJECT 03/04/19 13:29 5 ml ONETIME ONE Administration Departure - Departure Time of Disposition: 13:46 Disposition: Home, Self-Care 01 Clinical Impression: Laceration - Discharge Information Instructions: Laceration Care, Adult, [id number] Forms: ED Department Discharge Additional Instructions: The following information is given to patients seen in the emergency department who are being discharged to home. This information is to outline your options for follow-up care. We provide all patients seen in our emergency department with a follow-up referral. The need for follow-up, as well as the timing and circumstances, are variable depending upon the specifics of your emergency department visit. If you don't have a primary care physician on staff, we will provide you with a referral. We always advise you to contact your personal physician following an emergency department visit to inform them of the circumstance of the visit and for follow-up with them and/or the need for any referrals to a consulting specialist. The emergency department will also refer you to a specialist when appropriate. This referral assures that you have the opportunity for follow-up care with a specialist. All of these measure are taken in an effort to provide you with optimal care, which includes your follow-up. Under all circumstances we always encourage you to contact your private physician who remains a resource for coordinating your care. When calling for follow-up care, please make the office aware that this follow-up is from your recent emergency room visit. If for any reason you are refused follow-up, please contact the [facility] Emergency Department at and asked to speak to the emergency department charge nurse. [facility] [address] [place] [id number] [facility] [address] [place] [id number] 1. Keep the area clean and dry. Continue to monitor for signs of infection. Sutures to be removed in 7-10 days. 2. Tylenol and/or ibuprofen as needed for pain management. 3. Please follow-up with your primary care provider in the next 1-2 days. Return to the ED as needed and as discussed. - My Orders Last 24 Hours: My Active Orders 03/04/19 13:28 Vaccines to be Administered [RC] PER UNIT ROUTINE - Assessment/Plan Last 24 Hours: My Active Orders 03/04/19 13:28 Vaccines to be Administered [RC] PER UNIT ROUTINE
== END 2019-03-04 14:14 | disposition home or self-care (01) ==
LOC: MW.ED 13:08
DX: S61.211A Laceration without foreign body of left index finger without damage to nail, initial encounter (principal); Z88.1 Allergy status to other antibiotic agents; Z88.8 Allergy status to other drugs, medicaments and biological substances; Z23 Encounter for immunization; W01.0XXA Fall on same level from slipping, tripping and stumbling without subsequent striking against object, initial encounter
CPT/HCPCS: 12001; 90471; 90715; 99282; J2001

== ENCOUNTER 2020-02-28 12:13 | Emergency (ER) | payer SELFPAY ==
[2020-02-28] MEDS ORDERED: Lidocaine 1% PF 2 ML SDV INJECT ONE ×2 (12:20)
[2020-02-28] MEDS ORDERED: Bacitracin Oint 1 GM U/D Packet TOP ONE (12:20)
--- NOTE | 2020-02-28 12:30 | EDM.PDOC ---
ED HPI GENERAL MEDICAL PROBLEM - General Chief Complaint: Laceration Stated Complaint: CUT ON RT HAND TOP Time Seen by Provider: 02/28/20 12:19 Source of Information: Reports: Patient History Limitations: Reports: No Limitations - History of Present Illness INITIAL COMMENTS - FREE TEXT/NARRATIVE: HISTORY AND PHYSICAL: History of present illness: Patient is a 39-year-old female who presents to the emergency room with complaints of a laceration to the base of her right thumb. Prior to arrival she was washing dishes when one of them fell in the sink resulting in the laceration. She has full range of motion of the affected digit. Tetanus was updated in 2019. Offers no other systemic complaints or concerns at this time. Review of systems: As per history of present illness and below otherwise all systems reviewed and negative. Past medical history: As per history of present illness and as reviewed below otherwise noncontributory. Surgical history: As per history of present illness and as reviewed below otherwise noncontributory. Social history: See social history for further information Family history: As per history of present illness and as reviewed below otherwise noncontributory. Physical exam: General: Well-developed and well-nourished 39-year-old female. Alert and oriented. Nontoxic-appearing and in no acute distress. HEENT: Atraumatic, normocephalic, pupils equal and reactive bilaterally, negative for conjunctival pallor or scleral icterus, mucous membranes moist, trachea midline. No drooling or trismus noted. No meningeal signs. No hot potato voice noted. Lungs: Clear to auscultation, breath sounds equal bilaterally. Heart: S1S2, regular rate and rhythm without overt murmur Abdomen: Soft, nondistended, nontender. Skin: 2cm laceration to base of right thumb. No tendon involvement. Otherwise skin is intact, warm, dry. No lesions or rashes noted. Extremities: See SKIN, moves all extremities per self without difficulty or deficits. Neurovascular unremarkable. Neuro: Awake, alert, oriented. Cranial nerves II through XII unremarkable. Cerebellum unremarkable. Motor and sensory unremarkable throughout. Exam nonfocal. Notes: Wound wash and chlorhexidine were used to clean the site. 1% lidocaine was used to anesthetize the area. Usual and customary procedures were followed for suture placement. 4-0 nylon, #4 interrupted sutures were placed. Bacitracin nonstick dressing applied. Supportive care measures were reviewed and discussed. Voices understanding and is agreeable to plan of care. Denies any further questions or concerns at this time. Diagnostics: None Therapeutics: Lidocaine, bacitracin Prescription: None Impression: Laceration Plan: 1. Keep the area clean and dry. Continue to monitor for signs of infection. Sutures to be removed in 7-10 days. 2. Tylenol and/or ibuprofen as needed for pain management. 3. Please follow-up with your primary care provider in the next 1-2 days. Return to the ED as needed and as discussed. Definitive disposition and diagnosis as appropriate pending reevaluation and review of above. - Related Data Allergies Allergy/AdvReac Type Severity Reaction Status Date / Time amoxicillin trihydrate Allergy Hives Verified 02/28/20 12:23 [From Augmentin] potassium clavulanate Allergy Hives Verified 02/28/20 12:23 [From Augmentin] Home Meds: Home Meds . [No Known Home Meds] 03/04/19 [History] Past Medical History HEENT History: Reports: Impaired Vision Other HEENT History: has upper denture and lower partial Cardiovascular History: Reports: None Respiratory History: Reports: None Gastrointestinal History: Reports: GERD Genitourinary History: Reports: None [employer] History: Reports: 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 History: Reports: None Neurological History: Reports: None Psychiatric History: Reports: Anxiety, Depression Endocrine/Metabolic History: Reports: Other (See Below) Other Endocrine/Metabolic History: has thyroid nodules Hematologic History: Reports: None Immunologic History: Reports: None Oncologic (Cancer) History: Reports: None Dermatologic History: Reports: None - Infectious Disease History Infectious Disease History: Reports: Chicken Pox - Past Surgical History GI Surgical History: Reports: Appendectomy, Cholecystectomy Female Surgical History: Reports: Tubal Ligation Endocrine Surgical History: Reports: None Social & Family History - Family History Family Medical History: Noncontributory - Caffeine Use Caffeine Use: Reports: Coffee Caffeine Use Comment: 1-2cups/day ED ROS GENERAL - Review of Systems Review Of Systems: Comprehensive ROS is negative, except as noted in HPI. ED EXAM, SKIN/RASH Exam: See Below (See dictation) ED SKIN PROCEDURES - Laceration/Wound Repair Right thumb Appearance: Subcutaneous, Linear, Clean Distal NVT: Neuro & Vascular Intact, No Tendon Injury Anesthetic Type: Local Local Anesthesia - Lidocaine (Xylocaine): 1% Plain Local Anesthetic Volume: 2cc Skin Prep: Chlorhexidine (Hibiciens), Saline Saline Irrigation (cc's): 50 Exploration/Debridement/Repair: Wound Explored, In a Bloodless Field, Explored to Base, No Foreign Material Found Closed with: Sutures Lac/Wound length In cm: 2 Suture Size: 4-0 # of Sutures: 4 Suture Type: Nylon, Interrupted, Simple Drain Placement: No Sterile Dressing Applied: Provider Tetanus Status Addressed: Yes Complications: No Course - Vital Signs Last Recorded V/S: Last Vital Signs Temp 96.8 F L 02/28/20 12:21 Pulse 84 02/28/20 12:21 Resp 18 02/28/20 12:21 BP 143/87 H 02/28/20 12:21 Pulse Ox 97 02/28/20 12:21 - Orders/Labs/Meds Meds: Medications Discontinued Medications Generic Name Dose Route Start Last Admin Trade Name Reneq PRN Reason Stop Dose Admin Bacitracin 1 dose 02/28/20 12:20 02/28/20 12:42 Bacitracin Oint 1 Gm TOP 02/28/20 12:21 1 dose ONETIME ONE Administration Lidocaine HCl 4 ml 02/28/20 12:20 02/28/20 12:46 Xylocaine-Mpf 1% INJECT 02/28/20 12:21 Not Given ONETIME ONE Lidocaine HCl 2 ml 02/28/20 12:20 02/28/20 12:42 Xylocaine-Mpf 1% INJECT 02/28/20 12:21 2 ml ONETIME ONE Administration Departure - Departure Time of Disposition: 14:53 Disposition: Home, Self-Care 01 Clinical Impression: Laceration - Discharge Information Instructions: Laceration Care, Adult, [id number], Sutures, Ga, or Adhesive Wound Closure, [id number] Referrals: PCP,None [Primary Care Provider] - Forms: ED Department Discharge Additional Instructions: The following information is given to patients seen in the emergency department who are being discharged to home. This information is to outline your options for follow-up care. We provide all patients seen in our emergency department with a follow-up referral. The need for follow-up, as well as the timing and circumstances, are variable depending upon the specifics of your emergency department visit. If you don't have a primary care physician on staff, we will provide you with a referral. We always advise you to contact your personal physician following an emergency department visit to inform them of the circumstance of the visit and for follow-up with them and/or the need for any referrals to a consulting specialist. The emergency department will also refer you to a specialist when appropriate. This referral assures that you have the opportunity for follow-up care with a specialist. All of these measure are taken in an effort to provide you with optimal care, which includes your follow-up. Under all circumstances we always encourage you to contact your private physician who remains a resource for coordinating your care. When calling for follow-up care, please make the office aware that this follow-up is from your recent emergency room visit. If for any reason you are refused follow-up, please contact the [facility] Emergency Department at and asked to speak to the emergency department charge nurse. [facility] [address] [place] [address] [facility] [address] [place] [address] 1. Keep the area clean and dry. Continue to monitor for signs of infection. Sutures to be removed in 7-10 days. 2. Tylenol and/or ibuprofen as needed for pain management. 3. Please follow-up with your primary care provider in the next 1-2 days. Return to the ED as needed and as discussed. Sepsis Event Note - Focused Exam Vital Signs: Vital Signs Temp Pulse Resp BP Pulse Ox 02/28/20 12:21 96.8 F L 84 18 143/87 H 97 Date Exam was Performed: 02/28/20 Time Exam was Performed: 14:49
[2020-02-28 15:19] VITALS: BP 136/85; PULSE 76
== END 2020-02-28 12:41 | disposition home or self-care (01) ==
LOC: MW.ED 12:13
DX: S61.011A Laceration without foreign body of right thumb without damage to nail, initial encounter (principal); Z88.1 Allergy status to other antibiotic agents; Z88.8 Allergy status to other drugs, medicaments and biological substances; W26.8XXA Contact with other sharp object(s), not elsewhere classified, initial encounter
CPT/HCPCS: 12001; 99282; J2001

== ENCOUNTER 2020-03-07 16:30 | Emergency (ER) | payer SELFPAY | END 2020-03-07 16:48 | disposition left against medical advice (07) | LOC: MW.ED 16:30 | DX: Z53.21 Procedure and treatment not carried out due to patient leaving prior to being seen by health care provider (principal) ==

== ENCOUNTER 2020-04-25 11:35 | Emergency (ER) | payer SELFPAY ==
[2020-04-25] MEDS ORDERED: Lactated Ringers 1,000 ML IV ONE (11:57)
[2020-04-25] MEDS ORDERED: Sodium Chloride 0.9% 10 ML Syringe FLUSH PRN (11:57)
[2020-04-25] MEDS ORDERED: LORazepam 2 MG/ML SDV IVPUSH ONE (11:57)
[2020-04-25] MEDS ORDERED: Sodium Chloride 0.9% 2.5 ML Syringe FLUSH PRN (11:57)
--- NOTE | 2020-04-25 12:04 | EDM.PDOC ---
ED HPI GENERAL MEDICAL PROBLEM - General Chief Complaint: General Stated Complaint: NUMBESS, DIZZY Time Seen by Provider: 04/25/20 11:40 Source of Information: Reports: Patient History Limitations: Reports: No Limitations - History of Present Illness INITIAL COMMENTS - FREE TEXT/NARRATIVE: 39-year-old female with history of anxiety presents with bilateral arms numbness and tingling that started 2 hours ago, associated with numbness in the lips and dizziness. 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 Her last meal was dinner yesterday. She denies fever, chills, chest pain, abdominal pain, headache. ROS: A 10-point review of systems, other than pertinent positives and negatives as stated per HPI, is otherwise negative PHYSICAL EXAM General: AOx4, GCS = 15, mild distress, anxious, tremulous HEENT: dry mucous membrane Neck: supple, no meningismus, no Kernig or Brudzinski Cardiac: S1S2 tachy Respiratory: CTAB, no crackles or rales, no wheezing Abdomen: Soft, nontender, no rebound or guarding, nondistended, no pulsatile mass. Back: nontender 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: NVI distally, no deformity Neuro: No focal deficits. Onset: Today - Related Data Allergies Allergy/AdvReac Type Severity Reaction Status Date / Time amoxicillin trihydrate Allergy Hives Verified 04/25/20 11:46 [From Augmentin] potassium clavulanate Allergy Hives Verified 04/25/20 11:46 [From Augmentin] Home Meds: Home Meds cephALEXin [Keflex] 500 mg PO Q8H #21 cap 04/25/20 [Rx] Past Medical History HEENT History: Reports: Impaired Vision Other HEENT History: has upper denture and lower partial Cardiovascular History: Reports: None Respiratory History: Reports: None Gastrointestinal History: Reports: GERD Genitourinary History: Reports: None NURSE OBGYN History: Reports: 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 History: Reports: None Neurological History: Reports: None Psychiatric History: Reports: Anxiety, Depression Endocrine/Metabolic History: Reports: Other (See Below) Other Endocrine/Metabolic History: has thyroid nodules Hematologic History: Reports: None Immunologic History: Reports: None Oncologic (Cancer) History: Reports: None Dermatologic History: Reports: None - Infectious Disease History Infectious Disease History: Reports: Chicken Pox - Past Surgical History GI Surgical History: Reports: Appendectomy, Cholecystectomy Female Surgical History: Reports: Tubal Ligation Endocrine Surgical History: Reports: None Social & Family History - Family History Family Medical History: Noncontributory - Tobacco Use Smoking Status *Q: Current Every Day Smoker Years of Tobacco use: 20 Packs/Tins Daily: 1 - Caffeine Use Caffeine Use: Reports: Coffee Caffeine Use Comment: 1-2cups/day - Recreational Drug Use Recreational Drug Use: No ED ROS GENERAL - Review of Systems Review Of Systems: Comprehensive ROS is negative, except as noted in HPI. ED EXAM, GENERAL - Physical Exam Exam: See Below (see dictation) EKG INTERPRETATION EKG Interpretation Comments: Bpm, NSR, normal QRS interval, no STEMI. EKG and rhythm strip interpreted by me at Course - Vital Signs Last Recorded V/S: Last Vital Signs Temp 95.8 F L 04/25/20 11:42 Pulse 86 04/25/20 11:42 Resp 16 04/25/20 11:42 BP 132/97 H 04/25/20 11:42 Pulse Ox 99 04/25/20 11:42 - Orders/Labs/Meds Orders: Active Orders 24 hr Category Date Time Status Cardiac Monitoring [RC] . DIRECTED Care 04/25/20 11:57 Active Pulse Oximetry [RC] ASDIRECTED Care 04/25/20 11:57 Active Sodium Chloride 0.9% [Saline Flush] Med 04/25/20 11:57 Active 10 ml FLUSH ASDIRECTED PRN Sodium Chloride 0.9% [Saline Flush] Med 04/25/20 11:57 Active 2.5 ml FLUSH ASDIRECTED PRN Saline Lock Insert [OM.PC] Stat Oth 04/25/20 11:57 Ordered Medication Orders Sodium Chloride (Saline Flush) 10 ml FLUSH ASDIRECTED PRN PRN Reason: Keep Vein Open Sodium Chloride (Saline Flush) 2.5 ml FLUSH ASDIRECTED PRN PRN Reason: Keep Vein Open Labs: Laboratory Tests 04/25/20 04/25/20 04/25/20 Range/Units 11:54 11:54 13:57 WBC 22.21 H (4.0-11.0) K/uL RBC 5.06 (4.30-5.90) M/uL Hgb 16.6 H (12.0-16.0) g/dL Hct 48.2 H (36.0-46.0) % MCV 95.3 (80.0-98.0) fL MCH 32.8 H (27.0-32.0) pg MCHC 34.4 (31.0-37.0) g/dL RDW Std Deviation 49.4 (28.0-62.0) fl RDW Coeff of Jocelyn 14 (11.0-15.0) % Plt Count 187 (150-400) K/uL MPV 13.30 H (7.40-12.00) fL Neut % (Auto) 80.6 H (48.0-80.0) % Lymph % (Auto) 13.7 L (16.0-40.0) % [place] % (Auto) 4.5 (0.0-15.0) % Eos % (Auto) 0.9 (0.0-7.0) % Baso % (Auto) 0.3 (0.0-1.5) % Neut # (Auto) 17.9 H (1.4-5.7) K/uL Lymph # (Auto) 3.0 H (0.6-2.4) K/uL [place] # (Auto) 1.0 H (0.0-0.8) K/uL Eos # (Auto) 0.2 (0.0-0.7) K/uL Baso # (Auto) 0.1 (0.0-0.1) K/uL Nucleated RBC % 0.0 /100WBC Nucleated RBCs # 0 K/uL Sodium 136 (136-145) mmol/L Potassium 3.9 (3.5-5.1) mmol/L Chloride 99 (98-107) mmol/L Carbon Dioxide 22.3 (21.0-32.0) mmol/L BUN 9 (7.0-18.0) mg/dL Creatinine 0.8 (0.6-1.0) mg/dL Est Cr Clr Drug Dosing 78.10 mL/min Estimated GFR (MDRD) > 60.0 ml/min Glucose 107 H (74-106) mg/dL Calcium 9.4 (8.5-10.1) mg/dL Phosphorus 3.0 (2.6-4.7) mg/dL Magnesium 1.5 L (1.8-2.4) mg/dL Total Bilirubin 0.5 (0.2-1.0) mg/dL AST 18 (15-37) IU/L ALT 21 (14-63) IU/L Alkaline Phosphatase 78 (46-116) U/L Total Protein 7.5 (6.4-8.2) g/dL Albumin 4.0 (3.4-5.0) g/dL Globulin 3.5 (2.6-4.0) g/dL Albumin/Globulin Ratio 1.1 (0.9-1.6) Urine Color Urine Appearance Urine pH (5.0-8.0) Ur Specific Slick (1.001-1.035) Urine Protein (NEGATIVE) mg/dL Urine Glucose (UA) (NEGATIVE) mg/dL Urine Ketones (NEGATIVE) mg/dL Urine Occult Blood (NEGATIVE) Urine Nitrite (NEGATIVE) Urine Bilirubin (NEGATIVE) Urine Urobilinogen (<2.0) EU/dL Ur Leukocyte Esterase (NEGATIVE) Urine RBC (0-2/HPF) Urine WBC (0-5/HPF) Ur Epithelial Cells (NONE-FEW) Urine Bacteria (NEGATIVE) Urine HCG, Qual (NEGATIVE) Urine Opiates Screen NEGATIVE (NEGATIVE) Ur Oxycodone Screen NEGATIVE (NEGATIVE) Urine Methadone Screen NEGATIVE (NEGATIVE) Ur Barbiturates Screen NEGATIVE (NEGATIVE) Ur Phencyclidine Scrn NEGATIVE (NEGATIVE) Ur Amphetamine Screen NEGATIVE (NEGATIVE) U Methamphetamines Scrn NEGATIVE (NEGATIVE) U Benzodiazepines Scrn POSITIVE (NEGATIVE) U Cocaine Metab Screen NEGATIVE (NEGATIVE) U Marijuana (THC) Screen POSITIVE (NEGATIVE) 04/25/20 04/25/20 Range/Units 13:57 13:57 WBC (4.0-11.0) K/uL RBC (4.30-5.90) M/uL Hgb (12.0-16.0) g/dL Hct (36.0-46.0) % MCV (80.0-98.0) fL MCH (27.0-32.0) pg MCHC (31.0-37.0) g/dL RDW Std Deviation (28.0-62.0) fl RDW Coeff of Jocelyn (11.0-15.0) % Plt Count (150-400) K/uL MPV (7.40-12.00) fL Neut % (Auto) (48.0-80.0) % Lymph % (Auto) (16.0-40.0) % [place] % (Auto) (0.0-15.0) % Eos % (Auto) (0.0-7.0) % Baso % (Auto) (0.0-1.5) % Neut # (Auto) (1.4-5.7) K/uL Lymph # (Auto) (0.6-2.4) K/uL [place] # (Auto) (0.0-0.8) K/uL Eos # (Auto) (0.0-0.7) K/uL Baso # (Auto) (0.0-0.1) K/uL Nucleated RBC % /100WBC Nucleated RBCs # K/uL Sodium (136-145) mmol/L Potassium (3.5-5.1) mmol/L Chloride (98-107) mmol/L Carbon Dioxide (21.0-32.0) mmol/L BUN (7.0-18.0) mg/dL Creatinine (0.6-1.0) mg/dL Est Cr Clr Drug Dosing mL/min Estimated GFR (MDRD) ml/min Glucose (74-106) mg/dL Calcium (8.5-10.1) mg/dL Phosphorus (2.6-4.7) mg/dL Magnesium (1.8-2.4) mg/dL Total Bilirubin (0.2-1.0) mg/dL AST (15-37) IU/L ALT (14-63) IU/L Alkaline Phosphatase (46-116) U/L Total Protein (6.4-8.2) g/dL Albumin (3.4-5.0) g/dL Globulin (2.6-4.0) g/dL Albumin/Globulin Ratio (0.9-1.6) Urine Color YELLOW Urine Appearance SLT CLOUDY Urine pH 7.5 (5.0-8.0) Ur Specific Slick 1.015 (1.001-1.035) Urine Protein TRACE H (NEGATIVE) mg/dL Urine Glucose (UA) NEGATIVE (NEGATIVE) mg/dL Urine Ketones NEGATIVE (NEGATIVE) mg/dL Urine Occult Blood TRACE-INTACT H (NEGATIVE) Urine Nitrite NEGATIVE (NEGATIVE) Urine Bilirubin NEGATIVE (NEGATIVE) Urine Urobilinogen 0.2 (<2.0) EU/dL Ur Leukocyte Esterase TRACE H (NEGATIVE) Urine RBC 0-4 (0-2/HPF) Urine WBC 2-6 (0-5/HPF) Ur Epithelial Cells OCCASIONAL (NONE-FEW) Urine Bacteria 2+ H (NEGATIVE) Urine HCG, Qual NEGATIVE (NEGATIVE) Urine Opiates Screen (NEGATIVE) Ur Oxycodone Screen (NEGATIVE) Urine Methadone Screen (NEGATIVE) Ur Barbiturates Screen (NEGATIVE) Ur Phencyclidine Scrn (NEGATIVE) Ur Amphetamine Screen (NEGATIVE) U Methamphetamines Scrn (NEGATIVE) U Benzodiazepines Scrn (NEGATIVE) U Cocaine Metab Screen (NEGATIVE) U Marijuana (THC) Screen (NEGATIVE) Meds: Medications Generic Name Dose Route Start Last Admin Trade Name Freq PRN Reason Stop Dose Admin Sodium Chloride 10 ml 04/25/20 11:57 Saline Flush FLUSH ASDIRECTED PRN Keep Vein Open Sodium Chloride 2.5 ml 04/25/20 11:57 Saline Flush FLUSH ASDIRECTED PRN Keep Vein Open Discontinued Medications Generic Name Dose Route Start Last Admin Trade Name Freq PRN Reason Stop Dose Admin Ceftriaxone Sodium 1 gm 04/25/20 14:58 04/25/20 15:06 Rocephin IVPUSH 04/25/20 14:59 1 gm ONETIME ONE Administration Lactated Ringer's 1,000 mls @ 999 mls/hr 04/25/20 11:57 04/25/20 12:05 Ringers, Lactated IV 04/25/20 12:57 999 mls/hr .BOLUS ONE Administration Lorazepam 2 mg 04/25/20 11:57 04/25/20 12:05 Ativan IVPUSH 04/25/20 11:58 2 mg ONETIME ONE Administration - Re-Assessments/Exams Free Text/Narrative Re-Assessment/Exam: 04/25/20 12:04 Given IV fluids, 2 mg IV Ativan. 04/25/20 15:03 After IV fluids, Ativan 2 mg, Rocephin 1 g, and a prolonged observation period in the ER, she feels much better and is stable for discharge. I performed a repeat examination and the patient has not demonstrated any new abnormal findin gs. Patient exhibits normal vital signs and has exhibited a normal gait. I advised the patient to return to the ER for reevaluation if symptoms worsened, and to follow up with their PCP within 2-3 days. MEDICAL DECISION MAKING: I reviewed the patients past medical records, lab and radiographic findings. I discussed the case with the patient. My differential diagnosis included: UTI, hypoglycemia, anxiety, electrolyte abnormality. Her WBC demonstrated leukocytosis administer UTI, she was given IV Rocephin in the ER and amendable for outpatient oral antibiotic treatment for her urinary tract infection. Her blood glucose was normal. She presented clinically consistent with panic attack, she was given IV Ativan with improvement of her symptoms. I do not suspect underlying sepsis or bacteremia warranting inpatient hospitalization. I gave her strict return precautions and to follow-up with the [facility] within 2 to 3 days. Departure - Departure Time of Disposition: 15:00 Disposition: Home, Self-Care 01 Condition: Good Clinical Impression: UTI, Urinary tract infectious disease, Dizziness - Discharge Information *PRESCRIPTION DRUG MONITORING PROGRAM REVIEWED*: Not Applicable *COPY OF PRESCRIPTION DRUG MONITORING REPORT IN PATIENT ADRIA: Not Applicable Prescriptions: cephALEXin [Keflex] 500 mg PO Q8H #21 cap Instructions: Antibiotic Medicine, Adult, [id number], Urinary Tract Infection, Adult Referrals: PCP,None [Primary Care Provider] - 1 Week Forms: ED Department Discharge Additional Instructions: The following information is given to patients seen in the emergency department who are being discharged to home. This information is to outline your options for follow-up care. We provide all patients seen in our emergency department with a follow-up referral. The need for follow-up, as well as the timing and circumstances, are variable depending upon the specifics of your emergency department visit. If you don't have a primary care physician on staff, we will provide you with a referral. We always advise you to contact your personal physician following an emergency department visit to inform them of the circumstance of the visit and for follow-up with them and/or the need for any referrals to a consulting specialist. The emergency department will also refer you to a specialist when appropriate. This referral assures that you have the opportunity for follow-up care with a specialist. All of these measure are taken in an effort to provide you with optimal care, which includes your follow-up. Under all circumstances we always encourage you to contact your private physician who remains a resource for coordinating your care. When calling for follow-up care, please make the office aware that this follow-up is from your recent emergency room visit. If for any reason you are refused follow-up, please contact the [facility] Emergency Department at and asked to speak to the emergency department charge nurse. If you do not have a primary care doctor, please follow up with the clinics below within 3-5 days. [facility] [address] [place] [id number] [facility] [address] [place] [id number] Sepsis Event Note (ED) - Evaluation Sepsis Screening Result: No Definite Risk - Focused Exam Vital Signs: Vital Signs Temp Pulse Resp BP Pulse Ox 04/25/20 11:42 95.8 F L 86 16 132/97 H 99 - My Orders Last 24 Hours: My Active Orders 04/25/20 11:57 Cardiac Monitoring [RC] . DIRECTED Pulse Oximetry [RC] ASDIRECTED Sodium Chloride 0.9% [Saline Flush] 10 ml FLUSH ASDIRECTED PRN Sodium Chloride 0.9% [Saline Flush] 2.5 ml FLUSH ASDIRECTED PRN Saline Lock Insert [OM.PC] Stat - Assessment/Plan Last 24 Hours: My Active Orders 04/25/20 11:57 Cardiac Monitoring [RC] . DIRECTED Pulse Oximetry [RC] ASDIRECTED Sodium Chloride 0.9% [Saline Flush] 10 ml FLUSH ASDIRECTED PRN Sodium Chloride 0.9% [Saline Flush] 2.5 ml FLUSH ASDIRECTED PRN Saline Lock Insert [OM.PC] Stat
[2020-04-25 12:34] LABS: BLOOD UREA NITROGEN,BUN 9 mg/dL (7.0-18.0); CARBON DIOXIDE,CO2 22.3 mmol/L (21.0-32.0); CHLORIDE,CL 99 mmol/L (98-107); GLUCOSE RANDOM 107 mg/dL (74-106); POTASSIUM,K 3.9 mmol/L (3.5-5.1); SODIUM,NA 136 mmol/L (136-145)
[2020-04-25] MEDS ORDERED: cefTRIAXone 1 GM Vial IVPUSH ONE (14:58)
[2020-04-25 16:37] VITALS: BP 133/84; PULSE 69
== END 2020-04-25 15:30 | disposition home or self-care (01) ==
LOC: MW.ED 11:35
DX: N39.0 Urinary tract infection, site not specified (principal); R42 Dizziness and giddiness; F17.210 Nicotine dependence, cigarettes, uncomplicated; Z88.1 Allergy status to other antibiotic agents
CPT/HCPCS: 36415; 80053; 80305; 81001; 81025; 83735; 84100; 85025; 96361; 96374; 96375; 99284; J0696; J2060; J7120

== ENCOUNTER 2020-12-17 09:48 | Day surgery (SDC) | payer SELFPAY ==
[~2020-12-17 09:48] MED LIST changes: -Fluorescein 5 ML Vial ONE; -Sodium Chloride 0.9% 10 ML Syringe FLUSH PRN; -Sodium Chloride 0.9% 2.5 ML Syringe FLUSH PRN; -ceFAZolin 1 GM in Premix Bag 1 BAG IV ONE
--- NOTE | 2020-12-17 10:30 | PCM.PREANE ---
Preanesthetic Assessment - Anesthesia/Transfusion/Family Hx Anesthesia History: Prior Anesthesia Without Reaction Family History of Anesthesia Reaction: No Transfusion History: No Prior Transfusion(s) - Review of Systems General: No Symptoms Pulmonary: No Symptoms Cardiovascular: No Symptoms Gastrointestinal: No Symptoms Neurological: No Symptoms Other: Reports: None - Physical Assessment NPO Status Date: 12/16/20 Height: 5 ft 5 in Weight: 77.111 kg ASA Class: 2 Mental Status: Alert & Oriented x3 Airway Class: Mallampati = 2 Dentition: Reports: Normal Dentition, Dentures (upper) ROM/Head Extension: Full Lungs: Clear to Auscultation, Normal Respiratory Effort - Lab Values: Laboratory Last Values Urine HCG, Qual NEGATIVE (NEGATIVE) 12/17/20 10:00 - Allergies Allergies/Adverse Reactions: Allergies Allergy/AdvReac Type Severity Reaction Status Date / Time amoxicillin trihydrate Allergy Hives Verified 12/11/20 09:10 [From Augmentin] potassium clavulanate Allergy Hives Verified 12/11/20 09:10 [From Augmentin] - Blood Blood Available: No - Anesthesia Plan Pre-Op Medication Ordered: None - Acknowledgements Anesthesia Type Planned: General Anesthesia (tiva) Pt an Appropriate Candidate for the Planned Anesthesia: Yes Alternatives and Risks of Anesthesia Discussed w Pt/Guardian: Yes Pt/Guardian Understands and Agrees with Anesthesia Plan: Yes PreAnesthesia Questionnaire HEENT History: Reports: Impaired Vision Other HEENT History: wears glasses, has upper denture and lower partial Cardiovascular History: Reports: None Respiratory History: Reports: None Gastrointestinal History: Reports: Chronic Diarrhea, GERD Genitourinary History: Reports: None 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: 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 History: Reports: None Neurological History: Reports: None Psychiatric History: Reports: Anxiety, Depression Endocrine/Metabolic History: Reports: Other (See Below) Other Endocrine/Metabolic History: has thyroid nodules Hematologic History: Reports: None Immunologic History: Reports: None Oncologic (Cancer) History: Reports: None Dermatologic History: Reports: None - Infectious Disease History Infectious Disease History: Reports: Chicken Pox - Past Surgical History Head Surgeries/Procedures: Reports: None HEENT Surgical History: Reports: None Cardiovascular Surgical History: Reports: None Respiratory Surgical History: Reports: None GI Surgical History: Reports: Appendectomy, Cholecystectomy Female Surgical History: Reports: Tubal Ligation Endocrine Surgical History: Reports: None Neurological Surgical History: Reports: None 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 Surgical History: Reports: None Oncologic Surgical History: Reports: None Dermatological Surgical History: Reports: None - SUBSTANCE USE Tobacco Use Status *Q: Current Every Day Tobacco User Tobacco Use Within Last Twelve Months: Cigarettes Recreational Drug Type: Reports: Marijuana/Hashish - HOME MEDS Home Medications: Home Meds Acetaminophen [Tylenol] 2 tab PO ASDIRECTED PRN 12/11/20 [History] Dicyclomine [Bentyl] 1 tab PO ASDIRECTED PRN 12/11/20 [History] Ibuprofen 2 tab PO ASDIRECTED PRN 12/11/20 [History] - CURRENT (IN HOUSE) MEDS Current Meds: Current Medications Lactated Ringer's (Ringers, Lactated) 1,000 mls @ 125 mls/hr IV ASDIRECTED NICOLAS
[2020-12-17] MEDS ORDERED: Midazolam 1 MG/ML 2 ML SDV ONE (11:17)
[2020-12-17] MEDS ORDERED: Propofol 200 MG/20 ML SDV ONE (11:17)
--- NOTE | 2020-12-17 12:40 | PCM.OPNOTE ---
- General Post-Op/Procedure Note Date of Surgery/Procedure: 12/17/20 Operative Procedure(s): Colonoscopy with random biopsies Findings: Normal colon dictation number [id number] Pre Op Diagnosis: Loose stools Post-Op Diagnosis: Normal colon Primary Surgeon: Chip Braga Pathology: random colon biopsies Complications: None Condition: Good
[2020-12-17 15:01] VITALS: BP 130/77; PULSE 70
--- NOTE | 2020-12-17 15:11 | PCM.POSTAN ---
POST ANESTHESIA ASSESSMENT - MENTAL STATUS Mental Status: Alert, Oriented - VITAL SIGNS Vital Signs: Last Vital Signs Temp 97.0 F 12/17/20 12:50 Pulse 70 12/17/20 12:50 Resp 16 12/17/20 12:50 BP 130/77 12/17/20 12:50 Pulse Ox 97 12/17/20 12:50 - RESPIRATORY Respiratory Status: Respiratory Rate WNL, Airway Patent, O2 Saturation Stable - CARDIOVASCULAR CV Status: Pulse Rate WNL, Blood Pressure Stable - GASTROINTESTINAL GI Status: No Symptoms - POST OP HYDRATION Hydration Status: Adequate & Stable
--- NOTE | 2020-12-17 15:11 | PCM48HPAN ---
Post Anesthesia Note - EVALUATION WITHIN 48HRS OF ANESTHETIC Vital Signs in Normal Range: Yes Patient Participated in Evaluation: Yes Respiratory Function Stable: Yes Airway Patent: Yes Cardiovascular Function Stable: Yes Hydration Status Stable: Yes Pain Control Satisfactory: Yes Nausea and Vomiting Control Satisfactory: Yes Mental Status Recovered: Yes Vital Signs: Last Vital Signs Temp 97.0 F 12/17/20 12:50 Pulse 70 12/17/20 12:50 Resp 16 12/17/20 12:50 BP 130/77 12/17/20 12:50 Pulse Ox 97 12/17/20 12:50
--- NOTE | 2020-12-17 16:34 | OR ---
SURGEON: SARAH HONEYCUTT MD DATE OF PROCEDURE: 12/17/2020 PREOPERATIVE DIAGNOSIS: Loose stools. POSTOPERATIVE DIAGNOSIS: Normal colonoscopy. PRIMARY SURGEON: Sarah Honeycutt MD ANESTHESIA: With Anesthesiology. EXTENT OF COLONOSCOPY: To the cecum. WITHDRAWAL TIME: 9-1/2 minutes. LIMITATIONS: None. PROCEDURE PERFORMED: Colonoscopy with random colon biopsies. BOWEL PREP: Very good. REASON FOR PROCEDURE: The patient is a pleasant 40-year-old female who for the past several weeks has had loose stools and abdominal cramping. She denies any blood in her stool. She has never had a colonoscopy before. PROCEDURE IN DETAIL: Physical examination was performed. The major risks and benefits associated with the procedure were explained to the patient in detail. The patient verbalized understanding and agreement with the same. The patient was then connected to appropriate monitoring device and IV started. EKG, pulse, pulse oximetry, blood pressure, and capnography were monitored throughout the procedure. The patient's oxygen and sedation were provided by anesthesiologist. The patient was placed in left lateral decubitus position and sedation began. After adequate sedation was achieved, digital rectal exam was performed. No rectal masses or polyps were felt. Now, a well-lubricated Olympus colonoscope was entered into the rectum and advanced under direct visualization to the level of the cecum. Cecum was identified by both visual and anatomic landmarks. Photographs were taken of the cecal cap and the terminal ileum. Scope was then slowly withdrawn in somewhat circular fashion looking at the color, texture, anatomy, and integrity of the mucosa from the cecum to the anal canal. The patient had some light liquid stool, which was suctioned and irrigated out for great look at the mucosa. The patient had a fairly normal looking colon. Did do random biopsies from the cecum to the rectum just to check for some microscopic colitis. Scope was retroflexed in the rectum. Scope was then completely removed and procedure was terminated. ENDOSCOPIC DIAGNOSIS: Normal colonoscopy. RECOMMENDATIONS: The patient may follow up in the clinic to go over the pathology. Followup colonoscopy will depend on pathology, most likely will be in 10 years, sooner if she develops signs and symptoms such as change in bowel habits or blood in her stool. BROOK / NIKI /[id number]
== END 2020-12-17 13:08 | disposition home or self-care (01) ==
LOC: MW.SDS 09:48
PROVIDERS: ATTEND Surgery
DX: R19.7 Diarrhea, unspecified (principal); F17.210 Nicotine dependence, cigarettes, uncomplicated; Z88.1 Allergy status to other antibiotic agents; Z79.899 Other long term (current) drug therapy; Z90.49 Acquired absence of other specified parts of digestive tract
CPT/HCPCS: 45380; 81025; 88305; J2250; J2704; 00812

== ENCOUNTER 2021-02-17 15:41 | Emergency (ER) | payer SELFPAY ==
[2021-02-17] MEDS ORDERED: Sodium Chloride 0.9% 1,000 ML IV ONE (15:45)
--- NOTE | 2021-02-17 15:47 | EDM.PDOC ---
ED HPI GENERAL MEDICAL PROBLEM - General Chief Complaint: General Stated Complaint: NUMBNESS ON BOTH SIDES Time Seen by Provider: 02/17/21 15:46 Source of Information: Reports: Patient History Limitations: Reports: No Limitations - History of Present Illness INITIAL COMMENTS - FREE TEXT/NARRATIVE: Patient is a 40-year-old female who presents today for contractions of her bilateral hands. Patient that she was driving today when her hand just can get stuck in a clenched position and she has had difficulty moving them since then. Patient still range her arms and has good strength in her arms as well. Patient denies ever have similar this before in the past has no chest pain nausea vomiting or other complaints. Bilateral Upper Arms Pain Score (Numeric/FACES): 7 - Related Data Allergies Allergy/AdvReac Type Severity Reaction Status Date / Time amoxicillin trihydrate Allergy Hives Verified 02/17/21 15:54 [From Augmentin] potassium clavulanate Allergy Hives Verified 02/17/21 15:54 [From Augmentin] Home Meds: Home Meds . 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: 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 History: Reports: None Neurological History: Reports: None Psychiatric History: Reports: Anxiety, Depression Endocrine/Metabolic History: Reports: Other (See Below) Other Endocrine/Metabolic History: has thyroid nodules Hematologic History: Reports: None Immunologic History: Reports: None Oncologic (Cancer) History: Reports: None Dermatologic History: Reports: None - Infectious Disease History Infectious Disease History: Reports: Chicken Pox - Past Surgical History Head Surgeries/Procedures: Reports: None HEENT Surgical History: Reports: None Cardiovascular Surgical History: Reports: None Respiratory Surgical History: Reports: None GI Surgical History: Reports: Appendectomy, Cholecystectomy Female Surgical History: Reports: Tubal Ligation Endocrine Surgical History: Reports: None Neurological Surgical History: Reports: None 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 Surgical History: Reports: None Oncologic Surgical History: Reports: None Dermatological Surgical History: Reports: None Social & Family History - Family History Family Medical History: No Pertinent Family History - Caffeine Use Caffeine Use: Reports: Coffee Caffeine Use Comment: 1-2cups/day Review of Systems - Review of Systems Review Of Systems: See Below Constitutional: Reports: No Symptoms Eyes: Reports: No Symptoms Ears: Reports: No Symptoms Nose: Reports: No Symptoms Mouth/Throat: Reports: No Symptoms Respiratory: Reports: No Symptoms Cardiovascular: Reports: No Symptoms GI/Abdominal: Reports: No Symptoms Genitourinary: Reports: No Symptoms 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: Reports: Muscle Stiffness Skin: Reports: No Symptoms Neurological: Reports: No Symptoms Psychiatric: Reports: No Symptoms ED EXAM, GENERAL - Physical Exam Exam: See Below Exam Limited By: No Limitations General Appearance: Alert, WD/WN, Mild Distress Eye Exam: Bilateral Eye: EOMI, PERRL Respiratory/Chest: No Respiratory Distress, Lungs Clear Cardiovascular: Normal Peripheral Pulses, Regular Rate, Rhythm GI/Abdominal: Normal Bowel Sounds, Soft, Non-Tender Extremities: No: Normal Range of Motion (contraction ) Neurological: Alert, Oriented #1 Interpretation EKG Date: 02/17/21 Time: 15:53 Rhythm: NSR Rate (Beats/Min): 68 ST-T: Normal Course - Vital Signs Last Recorded V/S: Last Vital Signs Temp 97.3 F 02/17/21 15:54 Pulse 87 02/17/21 18:01 Resp 17 02/17/21 15:54 BP 128/70 02/17/21 18:01 Pulse Ox 99 02/17/21 18:01 - Orders/Labs/Meds Orders: Active Orders 24 hr Category Date Time Status EKG Documentation Completion [RC] STAT Care 02/17/21 17:16 Active Labs: Laboratory Tests 02/17/21 02/17/21 02/17/21 Range/Units 16:15 16:15 16:15 WBC 14.84 H (4.0-11.0) K/uL RBC 4.73 (4.30-5.90) M/uL Hgb 15.6 (12.0-16.0) g/dL Hct 45.5 (36.0-46.0) % MCV 96.2 (80.0-98.0) fL MCH 33.0 H (27.0-32.0) pg MCHC 34.3 (31.0-37.0) g/dL RDW Std Deviation 49.5 (28.0-62.0) fl RDW Coeff of Jocelyn 14 (11.0-15.0) % Plt Count 200 (150-400) K/uL MPV 12.90 H (7.40-12.00) fL Neut % (Auto) 67.2 (48.0-80.0) % Lymph % (Auto) 26.9 (16.0-40.0) % [place] % (Auto) 4.8 (0.0-15.0) % Eos % (Auto) 0.8 (0.0-7.0) % Baso % (Auto) 0.3 (0.0-1.5) % Neut # (Auto) 10.0 H (1.4-5.7) K/uL Lymph # (Auto) 4.0 H (0.6-2.4) K/uL [place] # (Auto) 0.7 (0.0-0.8) K/uL Eos # (Auto) 0.1 (0.0-0.7) K/uL Baso # (Auto) 0.1 (0.0-0.1) K/uL Nucleated RBC % 0.0 /100WBC Nucleated RBCs # 0 K/uL Sodium 140 (136-145) mmol/L Potassium 3.6 (3.5-5.1) mmol/L Chloride 101 (98-107) mmol/L Carbon Dioxide 24.7 (21.0-32.0) mmol/L BUN 11 (7.0-18.0) mg/dL Creatinine 0.8 (0.6-1.0) mg/dL Est Cr Clr Drug Dosing 77.33 mL/min Estimated GFR (MDRD) > 60.0 ml/min Glucose 102 (74-106) mg/dL Calcium 9.2 (8.5-10.1) mg/dL Magnesium 1.5 L (1.8-2.4) mg/dL Total Bilirubin 0.3 (0.2-1.0) mg/dL AST 17 (15-37) IU/L ALT 24 (14-63) IU/L Alkaline Phosphatase 82 (46-116) U/L Creatine Kinase 50 (26-308) U/L Total Protein 7.3 (6.4-8.2) g/dL Albumin 3.8 (3.4-5.0) g/dL Globulin 3.5 (2.6-4.0) g/dL Albumin/Globulin Ratio 1.1 (0.9-1.6) Lipase 130 (73-393) U/L HCG, Qual NEGATIVE (NEG) Ethyl Alcohol < 3.0 mg/dL Meds: Medications Discontinued Medications Generic Name Dose Route Start Last Admin Trade Name Jasmine PRN Reason Stop Dose Admin Sodium Chloride 1,000 mls @ 999 mls/hr 02/17/21 15:45 02/17/21 16:09 Normal Saline IV 02/17/21 16:45 999 mls/hr .BOLUS ONE Administration Magnesium Sulfate 2 gm in 50 mls @ 50 mls/hr 02/17/21 16:53 02/17/21 16:59 Magnesium Sulfate In Water 2 Gm/50 Ml IV 02/17/21 17:52 50 mls/hr ONETIME ONE Administration Midazolam HCl 1 mg 02/17/21 16:27 02/17/21 16:58 Midazolam 1 Mg/Ml 2 Ml Sdv IVPUSH 02/17/21 16:28 1 mg ONETIME ONE Administration - Re-Assessments/Exams Free Text/Narrative Re-Assessment/Exam: 02/17/21 18:22 Knees and was slightly low at 1.5. We gave patient Versed replete magnesium patient's hand contractions have improved. 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 Patient made aware and will follow with primary care physician. Departure - Departure Time of Disposition: 18:23 Disposition: Home, Self-Care 01 Condition: Good Clinical Impression: Contracture of hand - Discharge Information *PRESCRIPTION DRUG MONITORING PROGRAM REVIEWED*: Not Applicable *COPY OF PRESCRIPTION DRUG MONITORING REPORT IN PATIENT ADRIA: Not Applicable Instructions: Carpal Tunnel Syndrome, [id number] Forms: ED Department Discharge Additional Instructions: The following information is given to patients seen in the emergency department who are being discharged to home. This information is to outline your options for follow-up care. We provide all patients seen in our emergency department with a follow-up referral. The need for follow-up, as well as the timing and circumstances, are variable depending upon the specifics of your emergency department visit. If you don't have a primary care physician on staff, we will provide you with a referral. We always advise you to contact your personal physician following an emergency department visit to inform them of the circumstance of the visit and for follow-up with them and/or the need for any referrals to a consulting specialist. The emergency department will also refer you to a specialist when appropriate. This referral assures that you have the opportunity for follow-up care with a specialist. All of these measure are taken in an effort to provide you with optimal care, which includes your follow-up. Under all circumstances we always encourage you to contact your private physician who remains a resource for coordinating your care. When calling for follow-up care, please make the office aware that this follow-up is from your recent emergency room visit. If for any reason you are refused follow-up, please contact the [facility] Emergency Department at and asked to speak to the emergency department charge nurse. Please follow up with your primary care physician. If you do not have a primary care physician, see below: [facility] [address] [place] [id number] You were seen today for contractions of both hands. This may have been related to your magnesium being low. This also could be related to carpal tunnel syndrome as well. We recommend you follow-up with your primary care physician for further care. Sepsis Event Note (ED) - Focused Exam Vital Signs: Vital Signs Temp Pulse Resp BP Pulse Ox 02/17/21 18:01 87 128/70 99 02/17/21 15:54 97.3 F 81 17 153/81 H 98 - Assessment/Plan Plan: Patient is a 40-year-old female presents today for contractions of her hands. Will check patient's electrolytes and reassess.
[2021-02-17] MEDS ORDERED: Midazolam 1 MG/ML 2 ML SDV IVPUSH ONE (16:27)
[2021-02-17 16:46] LABS: BLOOD UREA NITROGEN,BUN 11 mg/dL (7.0-18.0); CARBON DIOXIDE,CO2 24.7 mmol/L (21.0-32.0); CHLORIDE,CL 101 mmol/L (98-107); GLUCOSE RANDOM 102 mg/dL (74-106); POTASSIUM,K 3.6 mmol/L (3.5-5.1); SODIUM,NA 140 mmol/L (136-145)
[2021-02-17 16:47] LABS: LIPASE 130 U/L (73-393)
[2021-02-17] MEDS ORDERED: Magnesium Sulfate/Water 2 GM/50 ML BAG IV ONE (16:53)
[2021-02-17 18:02] VITALS: BP 128/70; PULSE 87
== END 2021-02-17 18:30 | disposition home or self-care (01) ==
LOC: MW.ED 15:41
DX: M24.542 Contracture, left hand (principal); M24.541 Contracture, right hand; Z88.0 Allergy status to penicillin; Z88.1 Allergy status to other antibiotic agents
CPT/HCPCS: 36415; 80053; 80307; 82550; 83690; 83735; 84703; 85025; 93005; 96365; 96375; 99284; J2250; J3475; J7030; 99283

== ENCOUNTER 2021-07-25 08:08 | Emergency (ER) | payer SELFPAY ==
[2021-07-25] MEDS ORDERED: Ibuprofen 600 MG Tab PO ONE (08:21)
--- NOTE | 2021-07-25 08:26 | EDM.PDOC ---
ED HPI GENERAL MEDICAL PROBLEM - General Chief Complaint: Lower Extremity Injury/Pain Stated Complaint: LFT FOOT HURT Time Seen by Provider: 07/25/21 08:19 - History of Present Illness INITIAL COMMENTS - FREE TEXT/NARRATIVE: HISTORY AND PHYSICAL: History of present illness: There is a 41-year-old female who presents ER today secondary to stubbing her left pinky toe against her bed this morning. Patient has significant pain d iscomfort and swelling in that area. Patient reports that she injured it approximately 1 week ago as well. Review of systems: As per history of present illness and below otherwise all systems reviewed and negative. Past medical history: As per history of present illness and as reviewed below otherwise noncontributory. Surgical history: As per history of present illness and as reviewed below otherwise noncontributory. Social history: No reported history of drug abuse. Family history: As per history of present illness and as reviewed below otherwise noncontributory. Physical exam: This patient was seen and evaluated during the 2019 SARS-CoV-2 novel coronavirus pandemic period. Community viral transmission is ongoing at time of this encounter and the emergency department is operating under pandemic response procedures. Constitutional: Patient is oriented to person, place, and time. Appears well- developed and well-nourished. No distress. HEENT: Moist mucous membranes Head: Normocephalic and atraumatic Eyes: Right eye exhibits no discharge. Left eye exhibits no discharge. No scleral icterus Neck: Normal range of motion. No tracheal deviation present. Cardiovascular: Normal rate and regular rhythm. Pulmonary: Effort normal, no respiratory distress. Abdominal: No distention 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: Normal range of motion Neurologic: Alert and oriented to person, place and time. Skin: Dike, warm and dry. Psychiatric: Normal mood and affect. Behavior is normal. Judgment and thought content normal. Nursing note and vital signs have been reviewed Patient's ER physical exam is significant for ecchymosis swelling and tenderness to her left pinky toe at the metatarsal phalangeal joint. Diagnostics: X-ray left foot: Fracture at the base of the fifth proximal phalanx. Therapeutics: Ibuprofen 600 mg p.o. Assessment and plan: 41-year-old female who presents ER today secondary to pain to her left pinky toe after stubbing it against the bed. Patient will get an x-ray and will reevaluate after the x-ray. Patient x-ray reveals a fracture at the base of the fifth proximal phalanx. Patient will have jillian tape applied will be discharged home with ibuprofen. Definitive disposition and diagnosis as appropriate pending reevaluation and review of above. Left Foot Pain Score (Numeric/FACES): 5 - Related Data Allergies Allergy/AdvReac Type Severity Reaction Status Date / Time amoxicillin trihydrate Allergy Hives Verified 07/25/21 08:15 [From Augmentin] potassium clavulanate Allergy Hives Verified 07/25/21 08:15 [From Augmentin] Home Meds: Home Meds Ibuprofen 600 mg PO Q6HR PRN #30 tablet 07/25/21 [Rx] Past Medical History HEENT History: Reports: Impaired Vision Other HEENT History: wears glasses, has upper denture and lower partial Cardiovascular History: Reports: None Respiratory History: Reports: None Gastrointestinal History: Reports: Chronic Diarrhea, GERD Genitourinary History: Reports: None 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: 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 History: Reports: None Neurological History: Reports: None Psychiatric History: Reports: Anxiety, Depression Endocrine/Metabolic History: Reports: Other (See Below) Other Endocrine/Metabolic History: has thyroid nodules Hematologic History: Reports: None Immunologic History: Reports: None Oncologic (Cancer) History: Reports: None Dermatologic History: Reports: None - Infectious Disease History Infectious Disease History: Reports: Chicken Pox - Past Surgical History Head Surgeries/Procedures: Reports: None HEENT Surgical History: Reports: None Cardiovascular Surgical History: Reports: None Respiratory Surgical History: Reports: None GI Surgical History: Reports: Appendectomy, Cholecystectomy Female Surgical History: Reports: Tubal Ligation Endocrine Surgical History: Reports: None Neurological Surgical History: Reports: None 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 Surgical History: Reports: None Oncologic Surgical History: Reports: None Dermatological Surgical History: Reports: None Social & Family History - Family History Family Medical History: No Pertinent Family History - Caffeine Use Caffeine Use: Reports: None Caffeine Use Comment: 1-2cups/day - Recreational Drug Use Recreational Drug Use: Yes Recreational Drug Type: Reports: Methamphetamine Review of Systems - Review of Systems Review Of Systems: See Below ED EXAM, GENERAL - Physical Exam Exam: See Below Course - Vital Signs Last Recorded V/S: Last Vital Signs Temp 97.3 F 07/25/21 08:15 Pulse 78 07/25/21 08:15 Resp 16 07/25/21 08:15 BP 140/86 07/25/21 08:15 Pulse Ox 96 07/25/21 08:15 - Orders/Labs/Meds Meds: Medications Discontinued Medications Generic Name Dose Route Start Last Admin Trade Name Jasmine PRN Reason Stop Dose Admin Ibuprofen 600 mg 07/25/21 08:21 07/25/21 08:41 Ibuprofen 600 Mg Tab PO 07/25/21 08:22 600 mg ONETIME ONE Administration Departure - Departure Time of Disposition: 09:08 Disposition: Home, Self-Care 01 Condition: Good Clinical Impression: Fracture of toe of left foot - Discharge Information Instructions: Toe Fracture, [id number] Referrals: PCP,None [Primary Care Provider] - Forms: ED Department Discharge Additional Instructions: You were seen and evaluated in the ER today secondary to a fracture at the base of your left pinky toe. This type of fracture did not require any kind of surgery or casting. Usually we utilize jillian tape to put your fourth toe taped to your pinky toe to help immobilize it. Rest as much as you can. You will be given a prescription for x-rays ibuprofen to help you with your pain and discomfort. The following information is given to patients seen in the emergency department who are being discharged to home. This information is to outline your options for follow-up care. We provide all patients seen in our emergency department with a follow-up referral. The need for follow-up, as well as the timing and circumstances, are variable depending upon the specifics of your emergency department visit. If you don't have a primary care physician on staff, we will provide you with a referral. We always advise you to contact your personal physician following an emergency department visit to inform them of the circumstance of the visit and for follow-up with them and/or the need for any referrals to a consulting specialist. The emergency department will also refer you to a specialist when appropriate. This referral assures that you have the opportunity for follow-up care with a specialist. All of these measure are taken in an effort to provide you with optimal care, which includes your follow-up. Under all circumstances we always encourage you to contact your private physician who remains a resource for coordinating your care. When calling for follow-up care, please make the office aware that this follow-up is from your r ecent emergency room visit. If for any reason you are refused follow-up, please contact the [facility] Emergency Department at and asked to speak to the emergency department charge nurse. [facility] - Primary Care [address] [place] [address] [id number] [address] [id number] Sepsis Event Note (ED) - Evaluation Sepsis Screening Result: No Definite Risk - Focused Exam Vital Signs: Vital Signs Temp Pulse Resp BP Pulse Ox 07/25/21 08:15 97.3 F 78 16 140/86 96
--- NOTE | 2021-07-25 09:02 | CR ---
Indication: Pain in foot Comparison: None available. Technique: AP, Lateral, and Oblique views left foot were obtained Findings: There is a minimally displaced fracture at the base of the 5th proximal phalanx. No other displaced injuries are appreciated. There is a small bunion appreciated. There is moderate soft tissue swelling of the 5th digit. Impression: Minimally displaced fracture at the base of the proximal 5th phalanx with associated soft tissue swelling. Dictated by Altaf Lyn MD @ 07/25/2021 9:00:18 AM (Electronically Signed)
[2021-07-25 09:21] VITALS: BP 107/80; PULSE 72
== END 2021-07-25 09:24 | disposition home or self-care (01) ==
LOC: MW.ED 08:08
DX: S92.512A Displaced fracture of proximal phalanx of left lesser toe(s), initial encounter for closed fracture (principal); Z88.0 Allergy status to penicillin; W22.8XXA Striking against or struck by other objects, initial encounter
CPT/HCPCS: 73630; 99283; A9270

== ENCOUNTER 2022-03-09 11:23 | Emergency (ER) | payer SELFPAY ==
[2022-03-09 13:10] LABS: BLOOD UREA NITROGEN,BUN 9 mg/dL (7.0-18.0); CARBON DIOXIDE,CO2 21.1 mmol/L (21.0-32.0); CHLORIDE,CL 99 mmol/L (98-107); GLUCOSE RANDOM 106 mg/dL (74-106); LIPASE 145 U/L (73-393); POTASSIUM,K 4.2 mmol/L (3.5-5.1); SODIUM,NA 133 mmol/L (136-145)
[2022-03-09] MEDS ORDERED: Acetaminophen/oxyCODONE 325-5 MG Tab PO ONE (14:02)
[2022-03-09] MEDS ORDERED: Ketorolac 60 MG/2 ML SDV IM ONE (14:02)
[2022-03-09] MEDS ORDERED: Iopamidol 755 MG/ML 500 ML Multipack Bottle IVPUSH STA (15:02)
[2022-03-09 16:47] VITALS: BP 144/90; PULSE 65
== END 2022-03-09 16:09 | disposition home or self-care (01) ==
LOC: MW.ED 11:23
DX: R10.84 Generalized abdominal pain (principal); R19.7 Diarrhea, unspecified; Z88.0 Allergy status to penicillin
CPT/HCPCS: 36415; 74177; 76830; 80053; 81003; 83690; 84703; 85025; 96372; 99284; A9270; J1885; Q9967

== ENCOUNTER 2022-12-17 09:03 | Emergency (ER) | payer SELFPAY ==
[2022-12-17 09:24] VITALS: BP 147/90
[2022-12-17 10:28] VITALS: PULSE 82
== END 2022-12-17 10:28 | disposition home or self-care (01) ==
LOC: MW.ED 09:03
DX: S50.01XA Contusion of right elbow, initial encounter (principal); F17.210 Nicotine dependence, cigarettes, uncomplicated; Z88.0 Allergy status to penicillin; W00.0XXA Fall on same level due to ice and snow, initial encounter
CPT/HCPCS: 73080-26-RT; 73080-RT; 99283

== ENCOUNTER 2023-08-18 11:22 | Emergency (ER) | payer SELFPAY ==
[2023-08-18 12:29] VITALS: BP 175/108
[2023-08-18 12:44] LABS: CORONAVIRUS COVID-19 NAA NEGATIVE (NEGATIVE); INFLUENZA A NAA NEGATIVE (NEGATIVE); INFLUENZA B NAA NEGATIVE (NEGATIVE)
[2023-08-18] MEDS ORDERED: Ondansetron 4 MG/2 ML SDV IVPUSH ONE (13:49)
[2023-08-18] MEDS ORDERED: Sodium Chloride 0.9% 1,000 ML IV ONE (13:49)
[2023-08-18] MEDS ORDERED: Sodium Chloride 0.9% 10 ML Syringe FLUSH PRN (13:51)
[2023-08-18] MEDS ORDERED: Sodium Chloride 0.9% 2.5 ML Syringe FLUSH PRN (13:51)
[2023-08-18] MEDS ORDERED: Albuterol/Ipratropium 3.0-0.5 MG/3 ML Neb Soln NEB ONE (13:51)
[2023-08-18 14:49] LABS: BASOPHILS ABSOLUTE AUTO 0.07 K/uL (0.00-0.20); BASOPHILS PERCENT AUTO 0.5 % (0.0-1.0); EOSINOPHILS ABSOLUTE AUTO 0.03 K/uL (0.00-0.45); EOSINOPHILS PERCENT AUTO 0.2 % (0.0-6.0); HEMATOCRIT 46.3 % (37.0-47.0); HEMOGLOBIN 16.9 g/dL (12.0-16.0); IMMATURE GRAN ABSOLUTE AUTO 0.06 K/uL (0.00-0.05); IMMATURE GRAN PERCENT AUTO 0.5 % (0.0-0.4); LYMPHOCYTES PERCENT AUTO 18.1 % (24.0-44.0); MEAN CORPUSCULAR HEMOGLOBIN 34.4 pg (28.0-32.0); MEAN CORPUSCULAR HGB CONC 36.5 g/dL (32.0-36.0); MEAN CORPUSCULAR VOLUME 94.3 fL (83.0-99.0); MEAN PLATELET VOLUME 11.8 fL (9.4-12.3); MONOCYTES ABSOLUTE AUTO 0.67 K/uL (0.00-0.80); MONOCYTES PERCENT AUTO 5.3 % (0.0-8.0); NEUTROPHILS PERCENT AUTO 75.4 % (41.0-71.0); PLATELET COUNT,PLT 211 K/uL (150-400); RED BLOOD CELL COUNT 4.91 M/uL (4.10-5.30); WHITE BLOOD CELL COUNT,WBC 12.73 K/uL (3.9-11.3)
[2023-08-18 15:19] LABS: A/G RATIO 0.8 (0.9-1.6); ALBUMIN 3.6 g/dL (3.4-5.0); BILIRUBIN TOTAL 0.8 mg/dL (0.2-1.0); CARBON DIOXIDE,CO2 23.7 mmol/L (21.0-32.0); CREATININE 0.9 mg/dL (0.6-1.0); EST CRCL DRUG DOSING (CG) 69.6 mL/min; POTASSIUM,K 3.1 mmol/L (3.5-5.1); PROTEIN TOTAL,TP 7.9 g/dL (6.4-8.2)
[2023-08-18] MEDS ORDERED: Dexamethasone 4 MG/ML SDV IVPUSH ONE (16:00)
[2023-08-18 16:37] VITALS: PULSE 108
== END 2023-08-18 16:37 | disposition home or self-care (01) ==
LOC: MW.ED 11:22
DX: J02.9 Acute pharyngitis, unspecified (principal); J40 Bronchitis, not specified as acute or chronic; Z72.0 Tobacco use; Z88.0 Allergy status to penicillin; Z88.8 Allergy status to other drugs, medicaments and biological substances; Z20.822 Contact with and (suspected) exposure to COVID-19
CPT/HCPCS: 0240U; 36415; 71046; 80053; 83690; 84703; 85025; 85379; 87651; 96361; 96374; 96375; 99283; J1100; J2405; J3490; J7030; 99284; J7620-GY

== ENCOUNTER 2024-08-17 07:21 | Emergency (ER) | payer SELFPAY ==
[2024-08-17] MEDS: Morphine 4 MG/ML Syringe IVPUSH ONE (08:16)
[2024-08-17] MEDS: Ketorolac 30 MG/ML SDV IVPUSH ONE (09:48)
[2024-08-17 09:52] VITALS: BP 128/89; PULSE 69
== END 2024-08-17 09:52 | disposition home or self-care (01) ==
LOC: MW.ED 07:21
DX: R68.84 Jaw pain (principal); Z90.49 Acquired absence of other specified parts of digestive tract; Z79.899 Other long term (current) drug therapy; Z88.0 Allergy status to penicillin; Z88.1 Allergy status to other antibiotic agents
CPT/HCPCS: 70486; 96374; 96375; 99283; J1885; J2270; 99284

== ENCOUNTER 2024-09-11 19:49 | Emergency (ER) | payer SELFPAY ==
[2024-09-11 21:03] VITALS: BP 133/63
[2024-09-11] MEDS: oxyCODONE 5 MG Tab PO STA (21:46)
[2024-09-11] MEDS: Cephalexin 500 MG Cap PO STA (21:47)
[2024-09-11] MEDS: Sulfamethoxazole/Trimethoprim 800-160 MG Tab PO STA (21:47)
[2024-09-11 21:50] VITALS: PULSE 84
== END 2024-09-11 21:50 | disposition home or self-care (01) ==
LOC: MW.ED 19:49
DX: L03.317 Cellulitis of buttock (principal); Z88.1 Allergy status to other antibiotic agents; Z88.8 Allergy status to other drugs, medicaments and biological substances; Z75.8 Other problems related to medical facilities and other health care; Z79.899 Other long term (current) drug therapy; Z90.49 Acquired absence of other specified parts of digestive tract
CPT/HCPCS: 99283; A9270

== ENCOUNTER 2024-09-29 06:38 | Day surgery (SDC) | payer OTHER ==
[2024-09-29] MEDS ORDERED: Metoclopramide 10 MG/2 ML SDV IVPUSH PRN (06:58)
[2024-09-29] MEDS ORDERED: Phenylephrine HCl In 0.9% NaCl 1 MG/10 ML Syringe IVPUSH PRN (06:58)
[2024-09-29] MEDS ORDERED: Morphine 2 MG/ML SYRINGE IVPUSH PRN (06:58)
[2024-09-29] MEDS ORDERED: fentaNYL 50 MCG/ML SDV IVPUSH PRN (06:58)
[2024-09-29] MEDS ORDERED: HYDROmorphone 1 MG/ML Syringe IVPUSH PRN (06:58)
[2024-09-29] MEDS ORDERED: Albuterol 0.083% 2.5 MG/3 ML Neb Soln NEB PRN (06:58)
[2024-09-29] MEDS ORDERED: Naloxone 0.4 MG/ML SDV IVPUSH PRN (06:58)
[2024-09-29] MEDS ORDERED: Ondansetron 4 MG/2 ML SDV IVPUSH PRN (06:58)
[2024-09-29] MEDS: Lactated Ringers 1,000 ML IV SCH (07:07)
[2024-09-29] MEDS ORDERED: Bupivacaine 0.5% 30 ML SDV ONE (07:10)
[2024-09-29] MEDS ORDERED: ceFAZolin 1 GM Vial ONE (07:11)
[2024-09-29] MEDS ORDERED: Propofol 200 MG/20 ML SDV ONE (07:28)
[2024-09-29] MEDS ORDERED: Midazolam 1 MG/ML 2 ML SDV ONE (07:29)
[2024-09-29] MEDS ORDERED: fentaNYL 100 MCG/2 ML SDV ONE (07:29)
[2024-09-29] MEDS ORDERED: Lidocaine 1% 5 ML VIAL ONE (07:29)
[2024-09-29] MEDS ORDERED: Dexamethasone 4 MG/ML 5 ML MDV ONE (07:29)
[2024-09-29] MEDS ORDERED: Ondansetron 4 MG/2 ML SDV ONE (07:29)
[2024-09-29] MEDS ORDERED: Ketorolac 30 MG/ML SDV ONE (08:27)
[2024-09-29] MEDS ORDERED: Acetaminophen/HYDROcodone 325-5 MG Tab PO PRN (08:48)
[2024-09-29] MEDS ORDERED: Lactated Ringers 1,000 ML IV SCH (09:00)
[2024-09-29 10:33] VITALS: BP 104/65; PULSE 65
== END 2024-09-29 09:40 | disposition home or self-care (01) ==
LOC: MW.SDS 06:38
PROVIDERS: ATTEND Surgery
DX: L02.31 Cutaneous abscess of buttock (principal); F41.9 Anxiety disorder, unspecified; F32.A Depression, unspecified; K21.9 Gastro-esophageal reflux disease without esophagitis; F17.210 Nicotine dependence, cigarettes, uncomplicated
CPT/HCPCS: 10061; 81025; 87070; 87075; 87205; J0131; J0665; J1100; J1885; J2250; J2405; J2704; J3010; J7120; J0690; J3490